=== PATIENT | male | born 1970 | race Caucasian/White ===

== ENCOUNTER → 2024-08-08 | Outpatient (CLI) | payer SELFPAY ==
[2024-08-08 11:21] LABS: HCT 35.6 % (39.0-53.0); HGB 11.1 gm/dL (13.0-17.5); Hypochromasia Slight; MCH 30.4 pg (25.0-35.0); MCHC 31.1 g/dL (31.0-37.0); MCV 97.7 fL (80.0-100.0); Macrocytosis Slight; Mean Platelet Volume 8.1; Platelet Count 76 k/uL (150-450); RBC 3.64 m/uL (4.30-5.90); RDW 15.9 % (11.5-15.5)
[2024-08-08 12:57] LABS: Neutrophils % (M) 7 %; Nucleated Red Blood Cells 1 /100 WBC (0-0); Total Cells Counted 200
[2024-08-08 13:05] LABS: Blast Cells # (M) 150.93 k/uL (0); Eosinophils # (M) 1.68 k/uL (0-0.7); Lymphocytes # (M) 3.35 k/uL (1.0-4.8); Monocytes # (M) 3.35 k/uL (0-1.0); Neutrophils # (M) 11.74 k/uL (1.3-7.7); WBC 167.7 k/uL (3.8-10.6)
[2024-08-08 13:06] LABS: Anisocytosis (M) Present
== END | disposition home or self-care (01) ==
LOC: LABWHC1 10:42
PROVIDERS: ATTEND Family Medicine
DX: R89.9 Unspecified abnormal finding in specimens from other organs, systems and tissues (principal); R79.89 Other specified abnormal findings of blood chemistry
CPT/HCPCS: 36415; 82607; 82746; 85025

== ENCOUNTER → 2024-08-08 | Outpatient (CLI) | payer SELFPAY ==
--- NOTE | 2024-08-08 12:32 | US ---
EXAMINATION TYPE: US abdomen complete DATE OF EXAM: 08/08/2024 COMPARISON: NONE CLINICAL INDICATION: Male, 53 years old with history of R10.12 LEFT UPPER QUADRANT PAIN; LUQ pain, po ssible lymphoma. pt. refereed to oncology TECHNIQUE: Grayscale and color Doppler imaging of the abdomen was performed. FINDINGS: EXAM MEASUREMENTS: Liver Length: 19.1 cm Gallbladder Wall: 0.2 cm CBD: 0.3 cm, color Doppler imaging was utilized to isolate the common bile duct for measurement. Spleen: 19x11.9x15.2 cm Right Kidney: 14.7x5.6x5.3 cm Left Kidney: 13.1x3.7x5.2 cm Pancreas: hypoechoic area 4.0x1.0x1.9cm Liver: enlarged, echogenic Gallbladder: large stone 2.1x1.6x1.4cm Evidence for sonographic Decker's sign: No CBD: wnl Spleen: massively enlarged, possible splenules vs. hypoechoic areas of malignant origin. Right Kidney: large cystic area superior pole: 7.2 x 7.6 x 7.1cm Left Kidney: wnl Upper IVC: wnl Abd Aorta: plaque distal aorta exam limited by bowel gas The intrahepatic portion of the IVC and proximal abdominal aorta are within normal limits. Common bi le duct is unremarkable. The visualized portions of the pancreas are homogenous. Kidneys are symmet von and free of hydronephrosis. IMPRESSION: 1. Hepatosplenomegaly. 2. Cholelithiasis. 3. Hypoechoic area which is indeterminate in the pancreatic head. Further evaluation with pancreatic mass protocol MRI recommended. 4. Right simple appearing renal cysts. [facility], , 08/08/2024 12:30 PM
== END | disposition home or self-care (01) ==
LOC: RADUSWWP 09:53
PROVIDERS: ATTEND Family Medicine
DX: K80.20 Calculus of gallbladder without cholecystitis without obstruction (principal); N28.1 Cyst of kidney, acquired; R16.2 Hepatomegaly with splenomegaly, not elsewhere classified; R63.4 Abnormal weight loss; R11.0 Nausea; R68.83 Chills (without fever)
CPT/HCPCS: 76700

== ENCOUNTER 2024-08-09 05:25 | Inpatient (IN) | payer OTHER ==
[2024-08-09] MEDS ORDERED: ONDANSETRON 4 MG/2 ML VIAL IVP PRN (06:00)
[2024-08-09] MEDS ORDERED: NALOXONE 0.4 MG/ML 1 ML VIAL IV PRN (06:00)
[2024-08-09] MEDS ORDERED: ACETAMINOPHEN TAB 325 MG TAB PO PRN (06:00)
[2024-08-09] MEDS ORDERED: KETOROLAC 15 MG/ML 1 ML VIAL IVP PRN (06:00)
--- NOTE | 2024-08-09 06:09 | ED ---
General Adult HPI - General Chief complaint: Abdominal Pain Stated complaint: abd pain,Leukemia Time Seen by Provider: 08/09/24 05:30 Source: patient, RN notes reviewed, old records reviewed Mode of arrival: ambulatory Limitations: no limitations - History of Present Illness Initial comments: 53-year-old male with abdominal pain, recent diagnosis of leukemia. Patient was seen by oncology yesterday. Patient had significantly elevated white blood cell count and 90% blasts. He had an ultrasound of the abdomen performed which showed hepatosplenomegaly. Patient was started on hydroxyurea he was instructed to return to the emergency department with increased abdominal pain. He is pending bone marrow biopsy according to the patient. No fever. No vomiting. - Related Data Allergies Allergy/AdvReac Type Severity Reaction Status Date / Time No Known Allergies Allergy Verified 08/09/24 05:37 Review of Systems ROS Statement: Those systems with pertinent positive or pertinent negative responses have been documented in the HPI. ROS Other: All systems not noted in ROS Statement are negative. Past Medical History Past Medical History: Cancer History of Any Multi-Drug Resistant Organisms: None Reported Past Surgical History: No Surgical Hx Reported Past Psychological History: No Psychological Hx Reported Smoking Status: Current every day smoker Past Alcohol Use History: None Reported Past Drug Use History: Marijuana General Exam Limitations: no limitations General appearance: alert, in no apparent distress Head exam: Present: atraumatic, normocephalic Eye exam: Present: normal appearance, PERRL ENT exam: Present: normal exam Respiratory exam: Present: normal lung sounds bilaterally. Absent: respiratory distress, wheezes Cardiovascular Exam: Present: regular rate, normal rhythm GI/Abdominal exam: Present: soft, distended, tenderness Extremities exam: Present: normal inspection, normal capillary refill Neurological exam: Present: alert, oriented X3, CN II-XII intact. Absent: motor sensory deficit Psychiatric exam: Present: normal affect, normal mood Skin exam: Present: warm, dry, intact. Absent: cyanosis, diaphoretic Course Vital Signs 08/09/24 05:31 Temperature 97.5 F L Pulse Rate 91 Respiratory 18 Rate Blood Pressure 119/77 O2 Sat by Pulse 98 Oximetry Medical Decision Making - Medical Decision Making Was pt. sent in by a medical professional or institution (, PA, ADOPTION COUNSELOR, urgent care, hospital, or detention...) When possible be specific @Sent in by oncology Did you speak to anyone other than the patient for history (EMS, parent, family, police, friend...)? What history was obtained from this source @ -No Did you review nursing and triage notes (agree or disagree)? Why? @ -I reviewed and agree with nursing and triage notes Were old charts reviewed (outside hosp., previous admission, EMS record, old EKG, old radiological studies, urgent care reports/EKG's, detention records)? Report findings @ -No old charts were reviewed Differential Abdominal Pain Men: Appendicitis, cholecystitis, diverticulosis, ischemic bowel, pancreatitis, hepatitis, UTI, gastroenteritis, AAA, incarcerated hernia, bowel obstruction, constipation, inflammatory bowel, hepatitis, peptic ulcer disease, splenic infarction, perforated viscus, testicular torsion, this is not meant to be an all-inclusive list EKG interpreted by me (3pts min.). @ -As above X-rays interpreted by me (1pt min.). @ -None done CT interpreted by me (1pt min.). @ -None done U/S interpreted by me (1pt. min.). @ -None done What testing was considered but not performed or refused? (CT, X-rays, U/S, labs)? Why? @ -None What meds were considered but not given or refused? Why? @ -None Did you discuss the management of the patient with other professionals (professionals i.e. , PA, ADOPTION COUNSELOR, lab, RT, psych nurse, nephrology social worker, potter or ceramic artist, teacher, licensed loan officer, disease case manager)? Give summary @ -Case discussed with Dr. Birch who will admit Was smoking cessation discussed for >3mins.? @ -No Was critical care preformed (if so, how long)? @ -No Were there social determinants of health that impacted care today? How? (Homelessness, low income, unemployed, alcoholism, drug addiction, transport ation, low edu. Level, literacy, decrease access to med. care, residential, rehab)? @ -No Was there de-escalation of care discussed even if they declined (Discuss DNR or withdrawal of care, Hospice)? DNR status @ -No What co-morbidities impacted this encounter? (DM, HTN, Smoking, COPD, CAD, Cancer, CVA, ARF, Chemo, Hep., AIDS, mental health diagnosis, sleep apnea, morbid obesity)? @ -New diagnosis of leukemia Was patient admitted / discharged? Hospital course, mention meds given and route, prescriptions, significant lab abnormalities, going to OR and other pertinent info. @Repeat laboratory studies will be obtained these results are pending. Patient request Toradol for pain. He is given IV fluid in the emergency department will be admitted with consult to oncology, Dr. Birch aware. Undiagnosed new problem with uncertain prognosis? @ -No Drug Therapy requiring intensive monitoring for toxicity (Heparin, Nitro, Insulin, Cardizem)? @ -No Were any procedures done? @ -No Diagnosis/symptom? @ -Acute leukemia, abdominal pain Acute, or Chronic, or Acute on Chronic? @ -Acute Uncomplicated (without systemic symptoms) or Complicated (systemic symptoms)? @ -Default Side effects of treatment? @ -No Exacerbation, Progression, or Severe Exacerbation? @ -No Poses a threat to life or bodily function? How? (Chest pain, USA, SC, pneumonia, PE, COPD, DKA, ARF, appy, cholecystitis, CVA, Diverticulitis, Homicidal, Suicidal, threat to staff... and all critical care pts) @ -Yes, blast crisis, leukostasis Disposition Clinical Impression: Abdominal pain, Hepatosplenomegaly, Acute leukemia Disposition: ADMITTED IP TO THIS HOSP Condition: Stable Is patient prescribed a controlled substance at d/c from ED?: No Referrals: Eliot Birch Jr, DO [Primary Care Provider] - 1-2 days Time of Disposition: 06:09
[2024-08-09 06:11] LABS: Anisocytosis Slight; HCT 35.4 % (39.0-53.0); HGB 11.7 gm/dL (13.0-17.5); MCH 31.8 pg (25.0-35.0); MCHC 33.1 g/dL (31.0-37.0); MCV 96.1 fL (80.0-100.0); Macrocytosis Slight; Mean Platelet Volume 8.6; Poikilocytosis Slight; RBC 3.68 m/uL (4.30-5.90); RDW 16.4 % (11.5-15.5)
[2024-08-09] MEDS: SODIUM CHLORIDE 0.9% 1,000 ML IV STA (06:15)
[2024-08-09] MEDS: SODIUM CHLORIDE 0.9% 500 ML 500 ML IV STA (06:17)
[2024-08-09] MEDS: KETOROLAC 15 MG/ML 1 ML VIAL IVP STA (06:18)
[2024-08-09 06:20] LABS: ALT 25 U/L (4-49); AST 88 U/L (17-59); African American GFR (CKD) >90 (>60 ml/min/1.73 sqM); Albumin 3.7 g/dL (3.5-5.0); Alkaline Phosphatase 194 U/L (38-126); Amylase 53 U/L (30-110); Anion Gap 14 mmol/L; Blood Urea Nitrogen 16 mg/dL (9-20); Calcium 8.9 mg/dL (8.4-10.2); Carbon Dioxide 24 mmol/L (22-30); Chloride 99 mmol/L (98-107); Glucose 81 mg/dL (74-99); Lipase 128 U/L (23-300); Magnesium 1.8 mg/dL (1.6-2.3); Non-African American GFR(CKD) >90 (>60 ml/min/1.73 sqM); Phosphorus 3.2 mg/dL (2.5-4.5); Sodium 137 mmol/L (137-145); Total Bilirubin 0.8 mg/dL (0.2-1.3); Total Protein 6.3 g/dL (6.3-8.2); Uric Acid 9.2 mg/dL (3.5-8.5)
[2024-08-09 06:46] LABS: WBC 167.7 k/uL (3.8-10.6)
[2024-08-09 06:47] LABS: Platelet Count 74 k/uL (150-450)
[2024-08-09 07:03] LABS: Partial Thromboplastin Time 24.7 sec (22.0-30.0); Prothrombin Time 11.1 sec (10.0-12.5)
[2024-08-09 07:12] LABS: Appearance,Urine Cloudy (Clear); Bacteria,Urine Rare /hpf; Bilirubin,Urine Negative (Negative); Blood,Urine Small (Negative); Budding Yeast,Urine Many /hpf; Color,Urine Yellow; Glucose,Urine (UA) Negative (Negative); Granular Casts,Urine 6 /lpf (0); Hyaline Casts,Urine 11 /lpf (0-2); Ketones,Urine Trace (Negative); Leukocyte Esterase,Urine Negative (Negative); Mucus,Urine Few /hpf; Nitrite,Urine Negative (Negative); PH, Urine 5.5 (5.0-8.0); Protein,Urine 1+ (Negative); RBC,Urine 1 /hpf (0-5); WBC,Urine 3 /hpf (0-5)
[2024-08-09 08:47] LABS: Lymphocytes # (M) 16.77 k/uL (1.0-4.8); Metamyelocytes # (M) 3.35 k/uL (0); Metamyelocytes % 2 %; Monocytes # (M) 6.71 k/uL (0-1.0); Myelocytes # (M) 3.35 k/uL (0); Myelocytes % 2 %; Neutrophils # (M) 16.77 k/uL (1.3-7.7); Neutrophils % (M) 10 %; Promyelocytes # (M) 1.68 k/uL (0); Promyelocytes % 1 %
[2024-08-09 08:49] LABS: Blast Cells # (M) 122.42 k/uL (0); Nucleated Red Blood Cells 0 /100 WBC (0-0); Total Cells Counted 200
[2024-08-09] MEDS: PANTOPRAZOLE 40 MG/10 ML VIAL IV SCH (09:25)
[2024-08-09] MEDS: allopurinoL 300 MG TAB PO SCH (09:30)
[2024-08-09 10:23] LABS: Reticulocyte % 2.5 % (0.5-2.0)
[2024-08-09] MEDS ORDERED: LIDOCAINE 1% INJ 10MG/ML (20 ML MDV) ONE (12:50)
[2024-08-09] MEDS ORDERED: PROPOFOL 10 MG/ML 20 ML VIAL IV ONE (12:50)
[2024-08-09] MEDS: IV FLUID CONTINUATION 1,000 ML IV ONE (12:55)
--- NOTE | 2024-08-09 13:13 | P.PN ---
Progress Note - Text Progress Note Date: 08/09/24 Patient not seen, off floor for procedure.
[2024-08-09] MEDS: SODIUM CHLORIDE 0.9% 500 ML 500 ML IV ONE (13:26)
--- NOTE | 2024-08-09 16:05 | P.HPIM ---
History of Present Illness H&P Date: 08/09/24 Chief Complaint: Abdominal pain, recently diagnosed with leukemia History and Physical and Discharge Summary: This a pleasant 53-year-old gentleman elevated by oncology yesterday, lab work performed reporting significantly elevated WBCs, 90% blasts in a patient recently diagnosed with leukemia and instructed to proceed to the ER for bone marrow BX. Abdominal ultrasound reported hypoechoic area indeterminate of the pancreatic head-4.0 x 1.0 x 1.9 cm , liver enlarged, echogenic ,gallbladder- large stone 2.1 x 1.6 x 1.4 cm, common bile duct within normal limits, spleen massively enlarged possible splenules versus hypoechoic areas of malignant origin, kidneys symmetric and free of hydronephrosis. Currently maintained on Prilosec, Hydrea, Zyloprim. Reports he had mild nausea prior to the biopsy which has subsided. Denies fevers or chills. Denies chest pain, palpitations. Patient is status post bone marrow biopsy, pressure dressing clean dry and intact. Denies nausea vomiting or diarrhea. Denies lightheadedness, dizziness or focal deficits. Review of Systems ROS Statement: Those systems with pertinent positive or pertinent negative responses have been documented in the HPI. ROS Other: All systems not noted in ROS Statement are negative. Past Medical History Past Medical History: Cancer History of Any Multi-Drug Resistant Organisms: None Reported Past Surgical History: No Surgical Hx Reported Past Psychological History: No Psychological Hx Reported Smoking Status: Current every day smoker Past Alcohol Use History: None Reported Past Drug Use History: Marijuana Medications and Allergies Home Medications Medication Instructions Recorded Confirmed Type Hydroxyurea [Hydrea] 1,000 mg PO TID 08/09/24 08/09/24 History Omeprazole [PriLOSEC] 20 mg PO DAILY 08/09/24 08/09/24 History allopurinoL [Zyloprim] 300 mg PO HS 08/09/24 08/09/24 History Allergies Allergy/AdvReac Type Severity Reaction Status Date / Time No Known Allergies Allergy Verified 08/09/24 10:07 Physical Exam Vitals: Vital Signs Temp Pulse Resp BP Pulse Ox 08/09/24 14:34 84 16 93/64 97 08/09/24 13:35 81 16 101/66 96 08/09/24 11:43 95 18 113/73 97 08/09/24 10:11 85 17 97 08/09/24 09:30 97.7 F 89 19 105/76 97 08/09/24 06:39 97.7 F 86 18 115/70 94 L 08/09/24 05:31 97.5 F L 91 18 119/77 98 Intake and Output 08/08/24 08/09/24 08/09/24 22:59 06:59 14:59 Intake Total 100 Balance 100 Intake: IV 100 Other: Weight 61.235 kg PHYSICAL EXAM: VITAL SIGNS: [] Reviewed GENERAL: Thin, alert and oriented x 3, sitting up in bed, no acute distress HEENT: Normocephalic, atraumatic conjunctivae normal. NECK: No JVD. No thyroid enlargement. No LNs CARDIOVASCULAR: S1, S2 regular.. No murmur RESPIRATION: Unlabored, equal air entry, clear to auscultation.No rhonchi or crackles. No bronchial breathing. ABDOMEN: Soft, distended, minimal tenderness, hepatosplenomegaly, bowel sounds heard. LEGS: No edema. no swelling NERVOUS SYSTEM: Cranial N 2-12 grossly normal. No focal deficits. Strength and sensation grossly intact. Skin: Warm and dry, no rash. Pressure dressing clean dry and intact. Results CBC & Chem 7: 08/09/24 05:49 08/09/24 05:49 Labs: Abnormal Lab Results - Last 24 Hours (Table) 08/09/24 08/09/24 08/09/24 Range/Units 05:49 05:49 06:39 WBC 167.7 H* (3.8-10.6) k/uL RBC 3.68 L (4.30-5.90) m/uL Hgb 11.7 L (13.0-17.5) gm/dL Hct 35.4 L (39.0-53.0) % RDW 16.4 H (11.5-15.5) % Plt Count 74 L (150-450) k/uL Blast Cells % 73 H* % Neutrophils # (Manual) 16.77 H (1.3-7.7) k/uL Lymphocytes # (Manual) 16.77 H (1.0-4.8) k/uL Monocytes # (Manual) 6.71 H (0-1.0) k/uL Metamyelocytes # (Man) 3.35 H (0) k/uL Myelocytes # (Manual) 3.35 H (0) k/uL Promyelocytes # (Man) 1.68 H (0) k/uL Blast Cells # (Man) 122.42 H (0) k/uL Retic Count 2.5 H (0.5-2.0) % Uric Acid 9.2 H (3.5-8.5) mg/dL AST 88 H (17-59) U/L Alkaline Phosphatase 194 H (38-126) U/L Urine Protein 1+ H (Negative) Urine Ketones Trace H (Negative) Urine Blood Small H (Negative) Urine Bacteria Rare H (None) /hpf Hyaline Casts 11 H (0-2) /lpf Urine Mucus Few H (None) /hpf Urine Yeast (Budding) Many H (None) /hpf Assessment and Plan Assessment: Abdominal pain, hepatosplenomegaly, acute blast crisis, 90% on admission, decreased to 73, in a patient recently diagnosed with acute leukemia, status post bone marrow biopsy Hypoechoic area 4.0 x 1.0 x 1.9 cm indeterminate in the pancreatic head, further biopsy to be arranged as per Dr. Birch outpatient. Cholelithiasis, large stone 2.1 x 1.6 x 1.4 cm, CBD WNL Leukocytosis, significant with blasts and hepatosplenomegaly Right kidney large cystic area superior pole 7.2 x 7.6 x 7.1 cm, reported as right simple appearing renal cysts Moderate protein calorie malnutrition, BMI 18.8 Ongoing nicotine dependence, marijuana use, cessation reinforced. Plan: Continue on current medication regimen ,monitoring and symptomatic treatment. Patient has returned from bone marrow biopsy, receiving IV fluid hy dration. Patient and significant other are eager for discharge, patient will be discharged, pending final DC recommendations, clearance and follow-up per oncology. Ultrasound reviewed with PCP, pancreatic biopsy will be arranged outpatient in clinic with PCP, Dr. Birch. Prognosis guarded given multiple complex medical issues. The impression and plan of care has been dictated as directed. : I performed a history and examination of this patient, discussed the same with the dictator. I agree with the dictator's note ,documented as a scribe. Any additional findings or plans will be noted.
[2024-08-09 16:06] VITALS: PULSE 90; RESP 17
--- NOTE | 2024-08-09 16:17 | P.CONS ---
History of Present Illness - Reason for Consult Consult date: 08/09/24 Leukocytosis, peripheral blasts Requesting physician: Lauri Simons - Chief Complaint abd pain - History of Present Illness Mr. Lovelace is a very pleasant 53-year-old male seen yesterday for the first time in the office at the urgent request of his PCP Dr. Birch. Patient reports he had not been feeling well for about 2 months prior, some of his complaints included bone and joint pains that were new, left upper quadrant pain radiating to the shoulder, new onset acid reflux. About 3 weeks ago patient's significant other reports pt started having "drenching sweats," and would wake up in completely soaked clothers. Energy level started to decline pretty signific antly. Patient has had a 15 pound weight loss in about 1 month. Significant other convinced him to go to see his PCP care at which time laboratory workup was done. White blood cells were 179,000 platelets 88,000, hemoglobin 11.2 inflammatory markers such as CRP was elevated at 22.9, sed rate 39. Creatinine mildly elevated at 1.2, ALK phos 163. We saw patient yesterday in the office for urgent consult. Patient reporting constitutional symptoms as above. He is able to eat and drink, denies any nausea or vomiting, does have some early satiety and has to sleep in a recliner because of reflux. No shortness of breath, cough, acute changes in bowel or bladder habits. He does not have any s welling in legs. Pain in bones is not out of control. Patient was sent home from [facility] on Hydrea and allopurinol with plans for BM Bx today. Uric acid did return last evening at 10.3. He also had an ultrasound of the abdomen reporting hepatosplenomegaly, spleen 19 x 11.9 x 15.2. Liver length was 19.1 cm. Pt began experiencing some increase in pain and some stomach complaints that made him a little nervous so, he came to ER. In the ER patient appears to be doing ok, he felt much better after single dose of pain medication. The bone marrow biopsy and aspirate is scheduled for later on this morning. Review of Systems 14 point review of systems is negative except as stated in HPI Past Medical History Past Medical History: Cancer History of Any Multi-Drug Resistant Organisms: None Reported Past Surgical History: No Surgical Hx Reported Past Psychological History: No Psychological Hx Reported Smoking Status: Current every day smoker Past Alcohol Use History: None Reported Past Drug Use History: Marijuana Medications and Allergies Home Medications Medication Instructions Recorded Confirmed Type Hydroxyurea [Hydrea] 1,000 mg PO TID 08/09/24 08/09/24 History Omeprazole [PriLOSEC] 20 mg PO DAILY 08/09/24 08/09/24 History allopurinoL [Zyloprim] 300 mg PO HS 08/09/24 08/09/24 History Allergies Allergy/AdvReac Type Severity Reaction Status Date / Time No Known Allergies Allergy Verified 08/09/24 10:07 Physical Exam Vitals: Vital Signs Temp Pulse Resp BP Pulse Ox 08/09/24 11:43 95 18 113/73 97 08/09/24 10:11 85 17 97 08/09/24 09:30 97.7 F 89 19 105/76 97 08/09/24 06:39 97.7 F 86 18 115/70 94 L 08/09/24 05:31 97.5 F L 91 18 119/77 98 Intake and Output 08/08/24 08/09/24 08/09/24 22:59 06:59 14:59 Other: Weight 61.235 kg - Constitutional General appearance: cooperative, no acute distress, thin - EENT Eyes: anicteric sclerae, EOMI ENT: hearing grossly normal, normal oropharynx - Neck Neck: no lymphadenopathy - Respiratory Respiratory: bilateral: CTA - Cardiovascular Rhythm: regular Heart sounds: normal: S1, S2 Abnormal Heart Sounds: no systolic murmur, no diastolic murmur, no rub, no S3 Gallop, no S4 Gallop, no click, no other leg Peripheral Edema: bilateral: None - Gastrointestinal General gastrointestinal: no absent bowel sounds, no decreased bowel sounds, no distended, hepatomegaly, no hyperactive bowel sounds, normal bowel sounds, organomegaly, no rigid, no scaphoid, soft, splenomegaly, no tenderness, no umbilical hernia, no ventral hernia - Integumentary Integumentary: normal - Neurologic Neurologic: CNII-XII intact - Musculoskeletal Musculoskeletal: strength equal bilaterally - Psychiatric Psychiatric: A&O x's 3, appropriate affect, intact judgment & insight Results CBC & Chem 7: 08/09/24 05:49 08/09/24 05:49 Labs: Abnormal Lab Results - Last 24 Hours (Table) 08/09/24 08/09/24 08/09/24 Range/Units 05:49 05:49 06:39 WBC 167.7 H* (3.8-10.6) k/uL RBC 3.68 L (4.30-5.90) m/uL Hgb 11.7 L (13.0-17.5) gm/dL Hct 35.4 L (39.0-53.0) % RDW 16.4 H (11.5-15.5) % Plt Count 74 L (150-450) k/uL Blast Cells % 73 H* % Neutrophils # (Manual) 16.77 H (1.3-7.7) k/uL Lymphocytes # (Manual) 16.77 H (1.0-4.8) k/uL Monocytes # (Manual) 6.71 H (0-1.0) k/uL Metamyelocytes # (Man) 3.35 H (0) k/uL Myelocytes # (Manual) 3.35 H (0) k/uL Promyelocytes # (Man) 1.68 H (0) k/uL Blast Cells # (Man) 122.42 H (0) k/uL Retic Count 2.5 H (0.5-2.0) % Uric Acid 9.2 H (3.5-8.5) mg/dL AST 88 H (17-59) U/L Alkaline Phosphatase 194 H (38-126) U/L Urine Protein 1+ H (Negative) Urine Ketones Trace H (Negative) Urine Blood Small H (Negative) Urine Bacteria Rare H (None) /hpf Hyaline Casts 11 H (0-2) /lpf Urine Mucus Few H (None) /hpf Urine Yeast (Budding) Many H (None) /hpf Assessment and Plan (1) Leukocytosis Current Visit: Yes Status: Acute Priority: High Code(s): D72.829 - ELEVATED WHITE BLOOD CELL COUNT, UNSPECIFIED SNOMED Code(s): 527819917 (2) Hepatosplenomegaly Current Visit: Yes Status: Acute Priority: High Code(s): R16.2 - HEPATOMEGALY WITH SPLENOMEGALY, NOT ELSEWHERE CLASSIFIED SNOMED Code(s): 96675290 Plan: Significant leukocytosis with peripheral blasts, hepatosplenomegaly -Patient reporting mild constitutional symptoms for about 2 months, with significant progression of fatigue and new onset night sweats and weight loss over the last couple of weeks. Dr. Birch saw pt and keila labs on 08/07 with significant leukocytosis at 179. Dr. Birch made Stat referral to Hematology/Oncology. Patient was seen in our office afternoon of 08/08, PCP had differential ordered and done prior to being seen in the office with peripheral blasts noted. -Based on the findings on laboratory workup, concerns for an acute leukemic pr ocess. Hepatosplenomegaly raises concern that the leukocytosis is a transforming myelofibrosis-hematopoiesis is shifted to the spleen and now there is transformation in the marrow and/or spleen intoacute leukemia-which would certainly be the worst of the 2 scenarios. These potentials have been discussed with the patient and his significant other. -Bone marrow biopsy and aspirate recommended. Patient and significant other agree. Procedure was discussed with them. He is agreeable to proceed with the same -Did speak with [facility] pathology department who received patient specimen yesterday. Pending flow cytometry on the peripheral blood draw. Additional studies, cytogenetics will be done on the peripheral blood. bone marrow was a dry tap-felt that marrow is packed with blasts. -Pending preliminary report for treatment discussion Pt is ok for DC from a HemOnc standpoint. VSS, no SOB, abd pain, he is tolerating oral intake, no acute changes in bowel or bladder, no bleeding. Pt wants to be at home -Continue Hydrea TID and allopurinol QD, pt has Rx at home. -Lab encounter at [facility] on Mon at 1130 to recheck CBC, CMP, uric acid and phos. -Ok to remove pressure dressing after 24 hours.Tylenol only for pain, Shower after removal or pressure dressing. Report any unusual bleeding or bruising or unusual pain in the area. Return to ER if persistent or progressive symptoms Doctor attests: I performed a history and physical examination of this patient, developed impression and plan of care. Discussed with dictator. I agree with dictators note, documented as a scribe. Time with Patient: Greater than 30
[2024-08-09 16:49] VITALS: BP 126/83; TEMP 98
--- NOTE | 2024-08-09 23:47 | OP ---
OPERATIVE REPORT DATE OF SERVICE : PROCEDURE PERFORMED: Bone marrow biopsy with general and local sedation. DESCRIPTION OF PROCEDURE: After being placed in the left lateral decubitus position, the right posterior iliac spine was palpated, followed by palpation of the right posterior iliac crest. Three swabs of Betadine and three swabs of alcohol were applied to the skin, followed by application of sterile drape. Approximately 9 mL of lidocaine was applied to the periosteum. A 0.3 cm incision was then made into the skin, followed by advanced of a 4- inch Jamshidi needle, following multiple attempts, no aspirate was obtained. Two core samples measuring 0.3 to 0.4 cm were obtained. Additional 0.3 cm incision was made just inferiorly to the first incision, followed by advancement of a 4-inch Jamshidi needle. Again, no aspirate was obtained. Additional 0.4 cm core sample was obtained. He had less than 1 mL of blood loss. He tolerated the procedure without any significant complications. He returned to the ED in stable condition. Samples will be sent for morphology. We will obtain flow cytometry, FISH, cytogenetics, and NGS from the peripheral blood. PREOPERATIVE DIAGNOSIS: Acute myeloid leukemia. POSTOPERATIVE DIAGNOSIS: Acute myeloid leukemia. MMODL / IJN: [id number] / MTDD
== END 2024-08-09 17:00 | disposition home or self-care (01) | DRG 835 ==
LOC: EC 05:25 → 5NMEDONC 06:03
PROVIDERS: ADMIT Family Medicine; ATTEND Family Medicine
PROC: 07DR3ZX Extraction of Iliac Bone Marrow, Percutaneous Approach, Diagnostic (ICD-10-PCS; principal; 2024-08-09 08:00)
DX: C92.00 Acute myeloblastic leukemia, not having achieved remission (principal); E44.0 Moderate protein-calorie malnutrition; Z68.1 Body mass index [BMI] 19.9 or less, adult; R16.2 Hepatomegaly with splenomegaly, not elsewhere classified; K21.9 Gastro-esophageal reflux disease without esophagitis; K80.20 Calculus of gallbladder without cholecystitis without obstruction; N28.1 Cyst of kidney, acquired; F17.200 Nicotine dependence, unspecified, uncomplicated; Z71.6 Tobacco abuse counseling; Z71.51 Drug abuse counseling and surveillance of drug abuser
CPT/HCPCS: 36415; 38222; 80053; 81001; 82150; 83690; 83735; 84100; 84550; 85025; 85045; 85610; 85730; 96361; 96374; 96375; 99285

== ENCOUNTER 2024-08-24 10:49 | Inpatient (IN) | payer OTHER ==
--- NOTE | 2024-08-24 11:16 | ED ---
Weakness HPI - General Chief complaint: Shortness of Breath Stated complaint: Weakness Time Seen by Provider: 08/24/24 11:02 Source: patient, family, RN notes reviewed, old records reviewed, Caregiver Mode of arrival: wheelchair Limitations: physical limitation - History of Present Illness Initial comments: This is a 53-year-old male brought in for abnormal outpatient lab test as well as significant weakness brought in by who states patient has deteriorating rapidly with new diagnosis of CA MD Complaint: generalized weakness, lack of energy -: days(s) Location: generalized Severity: severe Severity scale (1-10): 10 Consistency: constant Improves with: none Worsens with: none Associated Symptoms: confusion, loss of appetite, nausea/vomiting, shortness of breath - Related Data Home Medications Medication Instructions Recorded Confirmed Hydroxyurea [Hydrea] 1,000 mg PO TID 08/09/24 08/24/24 Omeprazole [PriLOSEC] 20 mg PO DAILY 08/09/24 08/24/24 allopurinoL [Zyloprim] 300 mg PO HS 08/09/24 08/24/24 HYDROcodone/APAP 10-325MG [[place] 1 - 2 tab PO Q6H PRN 08/24/24 08/24/24 10-325] Ondansetron [Zofran] 4 mg PO Q6H PRN 08/24/24 08/24/24 Allergies Allergy/AdvReac Type Severity Reaction Status Date / Time No Known Allergies Allergy Verified 08/24/24 11:17 Review of Systems ROS Statement: Those systems with pertinent positive or pertinent negative responses have been documented in the HPI. ROS Other: All systems not noted in ROS Statement are negative. Past Medical History Past Medical History: Cancer History of Any Multi-Drug Resistant Organisms: None Reported Past Surgical History: No Surgical Hx Reported Past Psychological History: No Psychological Hx Reported Smoking Status: Current every day smoker Past Alcohol Use History: None Reported Past Drug Use History: Marijuana - Past Family History Father History Unknown: Yes Mother Family Medical History: Cancer Additional Family Medical History / Comment(s): Breast CA, passed at age 53 General Exam Limitations: altered mental status, physical limitation General appearance: alert, anxious, lethargic, in distress Head exam: Present: atraumatic, normocephalic, normal inspection Eye exam: Present: normal appearance, PERRL, EOMI. Absent: scleral icterus, conjunctival injection, periorbital swelling ENT exam: Present: normal exam, mucous membranes moist Neck exam: Present: normal inspection. Absent: tenderness, meningismus, lymp hadenopathy Respiratory exam: Present: respiratory distress, wheezes, accessory muscle use, decreased breath sounds, prolonged expiratory. Absent: rales, rhonchi, stridor Cardiovascular Exam: Present: tachycardia, normal heart sounds. Absent: systo lic murmur, diastolic murmur, rubs, gallop, clicks GI/Abdominal exam: Present: soft, normal bowel sounds. Absent: distended, tenderness, guarding, rebound, rigid Extremities exam: Present: normal inspection, full ROM, normal capillary refill. Absent: tenderness, pedal edema, joint swelling, calf tenderness Back exam: Present: normal inspection Neurological exam: Present: alert, oriented X3, CN II-XII intact Psychiatric exam: Present: normal affect, normal mood Skin exam: Present: warm, dry, intact, normal color. Absent: rash Course Vital Signs 08/24/24 08/24/24 08/24/24 10:54 11:19 11:20 Temperature 97.9 F Pulse Rate 125 H 118 H 115 H Pulse Rate [ Boy'S Adviser ] Respiratory 22 18 18 Rate Blood Pressure 103/69 109/72 104/70 O2 Sat by Pulse 99 98 96 Oximetry 08/24/24 08/24/24 08/24/24 11:29 12:30 13:30 Temperature 97.0 F L Pulse Rate 114 H 113 H 62 Pulse Rate [ 118 H Boy'S Adviser ] Respiratory 20 20 20 Rate Blood Pressure 104/69 98/62 100/52 O2 Sat by Pulse 97 97 97 Oximetry 08/24/24 08/24/24 14:29 14:40 Temperature 97.8 F 97.5 F L Pulse Rate 118 H 114 H Pulse Rate [ Boy'S Adviser ] Respiratory 22 16 Rate Blood Pressure 95/65 95/63 O2 Sat by Pulse 97 95 Oximetry - Reevaluation(s) Reevaluation #1: 08/24/24 13:15 Medical records reviewed Reevaluation #2: 08/24/24 13:15 Patient's respirations are improving here in the ER Reevaluation #3: 08/24/24 13:16 Patient informed of results and questions answered Reevaluation #4: Was pt. sent in by a medical professional or institution (JOHN Elkins, ELEVATOR SERVICEMAN, urgent care, hospital, or assisted...) When possible be specific @ -no Did you speak to anyone other than the patient for history (EMS, parent, family, police, friend...)? What history was obtained from this source @ -no Did you review nursing and triage notes (agree or disagree)? Why? @ -agree Are old charts reviewed (outside hosp., previous admission, EMS record, old EKG, old radiological studies, urgent care reports/EKG's, assisted records)? Report findings @ -yes Differential Diagnosis (chest pain, altered mental status, abdominal pain women, abdominal pain men, vaginal bleeding, weakness, fever, dyspnea, syncope, heada margret, dizziness, GI bleed, back pain, seizure, CVA, palpatations, mental health, musculoskeletal)? @ -prior EKG interpreted by me (3pts min.). @ -yes X-rays interpreted by me (1pt min.). @ -yes significant pneumonia CT interpreted by me (1pt min.). @ -no U/S interpreted by me (1pt. min.). @ -no What testing was considered but not performed or refused? (CT, X-rays, U/S, labs)? Why? @ -none What meds were considered but not given or refused? Why? @ -none Did you discuss the management of the patient with other professionals (professionals i.e. JOHN Elkins, ELEVATOR SERVICEMAN, lab, RT, psych nurse, oncology social worker, shank rander, teacher, articulation officer, pillowcase maker)? Give summary @ -no Was smoking cessation discussed for >3mins.? @ -no Was critical care preformed (if so, how long)? @ -no Were there social determinants of health that impacted care today? How? (Homelessness, low income, unemployed, alcoholism, drug addiction, transportation, low edu. Level, literacy, decrease access to med. care, residential, rehab)? @ -none Was there de-escalation of care discussed even if they declined (Discuss DNR or withdrawal of care, Hospice)? DNR status @ -no What co-morbidities impacted this encounter? (DM, HTN, Smoking, COPD, CAD, Cancer, CVA, ARF, Chemo, Hep., AIDS, mental health diagnosis, sleep apnea, morbid obesity)? @ -none Was patient admitted / discharged? Hospital course, mention meds given and route, prescriptions, significant lab abnormalities, going to OR and other pertinent info. @ - 53 male to ER for evaluation patient here for significant complications of CA, patient will be admitted to ICU for significant acidosis non-ST elevated GA concern for sepsis, concern for complication of cancer and leukemia including tumor lysis and leukostasis, patient appears to have may be pneumonia on chest x-ray Admitted Undiagnosed new problem with uncertain prognosis? @ -no Drug Therapy requiring intensive monitoring for toxicity (Heparin, Nitro, Insulin, Cardizem)? @ -no Were any procedures done? @ -no Diagnosis/symptom? @ -Cancer complications acidosis, non-ST elevated GA with sepsis pneumonia suspect leukostasis Acute, or Chronic, or Acute on Chronic? @ -Acute Uncomplicated (without systemic symptoms) or Complicated (systemic symptoms)? @ -Complicated Side effects of treatment? @ -no Exacerbation, Progression, or Severe Exacerbation? @ -exacerbation Poses a threat to life or bodily function? How? (Chest pain, USA, GA, pneumonia, PE, COPD, DKA, ARF, appy, cholecystitis, CVA, Diverticulitis, Homicidal, Suicidal, threat to staff... and all critical care pts) @ -yes significant cancer history Reevaluation #5: Differential Weakness: Hypoglycemia, shock, sepsis, hyponatremia, anemia, infection, GA, ETOH, adverse medicine reaction, overdose, stroke, this is not meant to be an all-inclusive list. - Consultations Consultation #1: Spoke with oncology as well as ICU who did evaluate patient here in the ER and patient will be admitted to ICU Consultation #2: Spoke with Dr. Birch who is aware of this patient EKG Findings - EKG Comments: EKG Findings:: EKG is sinus tach 117 MD 124 QRS 73 QTc 328 - EKG Results: EKG: interpreted by ERMD Medical Decision Making - Medical Decision Making 53 male to ER for evaluation patient here for significant complications of CA, patient will be admitted to ICU for significant acidosis non-ST elevated GA concern for sepsis, concern for complication of cancer and leukemia including tumor lysis and leukostasis, patient appears to have may be pneumonia on chest x-ray - Lab Data Result diagrams: 08/24/24 19:30 08/24/24 19:30 Lab Results 08/24/24 08/24/24 08/24/24 Range/Units 11:16 11:16 11:16 WBC 135.7 H* (3.8-10.6) k/uL RBC 2.19 L (4.30-5.90) m/uL Hgb 8.1 L D (13.0-17.5) gm/dL Hct 21.8 L (39.0-53.0) % MCV 99.4 (80.0-100.0) fL MCH 37.1 H (25.0-35.0) pg MCHC 37.3 H (31.0-37.0) g/dL RDW 17.1 H (11.5-15.5) % Plt Count 21 L D (150-450) k/uL MPV 11.2 Neutrophils % (Manual) 3 % Band Neuts % (Manual) 1 % Lymphocytes % (Manual) 14 % Monocytes % (Manual) 9 % Metamyelocytes % 1 % Blast Cells % 74 H* % Neutrophils # (Manual) 5.40 (1.3-7.7) k/uL Lymphocytes # (Manual) 19.00 H (1.0-4.8) k/uL Monocytes # (Manual) 12.21 H (0-1.0) k/uL Metamyelocytes # (Man) 1.36 H (0) k/uL Blast Cells # (Man) 100.42 H (0) k/uL Nucleated RBCs 0 (0-0) /100 WBC Manual Slide Review Performed Hypochromasia Marked Poikilocytosis Slight Anisocytosis Slight Macrocytosis Slight PT 12.4 (10.0-12.5) sec INR 1.2 H (<1.2) APTT 21.8 L (22.0-30.0) sec Sample Site ABG pH (7.35-7.45) ABG pCO2 (35-45) mmHg ABG pO2 (83-108) mmHg ABG HCO3 (21-25) mmol/L ABG Total CO2 (19-24) mmol/L ABG O2 Saturation (94-97) % ABG Base Excess mmol/L Vito Test FiO2 % Sodium 138 (137-145) mmol/L Potassium 4.8 (3.5-5.1) mmol/L Chloride 106 (98-107) mmol/L Carbon Dioxide 8 L* (22-30) mmol/L Anion Gap 24 mmol/L BUN 40 H (9-20) mg/dL Creatinine 1.27 H (0.66-1.25) mg/dL Est GFR (CKD-EPI)AfAm 75 (>60 ml/min/1.73 sqM) Est GFR (CKD-EPI)NonAf 65 (>60 ml/min/1.73 sqM) Glucose 91 (74-99) mg/dL Uric Acid (3.5-8.5) mg/dL Calcium 9.3 (8.4-10.2) mg/dL Phosphorus (2.5-4.5) mg/dL Magnesium 2.6 H (1.6-2.3) mg/dL Total Bilirubin 1.4 H (0.2-1.3) mg/dL AST 74 H (17-59) U/L ALT 27 (4-49) U/L Alkaline Phosphatase 261 H (38-126) U/L Troponin I (0.000-0.034) ng/mL NT-Pro-B Natriuret Pep 6810 pg/mL Total Protein 6.0 L (6.3-8.2) g/dL Albumin 3.6 (3.5-5.0) g/dL Procalcitonin (0.02-0.50) ng/mL Blood Type Confirm 08/24/24 08/24/24 08/24/24 Range/Units 11:16 11:16 11:16 WBC (3.8-10.6) k/uL RBC (4.30-5.90) m/uL Hgb (13.0-17.5) gm/dL Hct (39.0-53.0) % MCV (80.0-100.0) fL MCH (25.0-35.0) pg MCHC (31.0-37.0) g/dL RDW (11.5-15.5) % Plt Count (150-450) k/uL MPV Neutrophils % (Manual) % Band Neuts % (Manual) % Lymphocytes % (Manual) % Monocytes % (Manual) % Metamyelocytes % % Blast Cells % % Neutrophils # (Manual) (1.3-7.7) k/uL Lymphocytes # (Manual) (1.0-4.8) k/uL Monocytes # (Manual) (0-1.0) k/uL Metamyelocytes # (Man) (0) k/uL Blast Cells # (Man) (0) k/uL Nucleated RBCs (0-0) /100 WBC Manual Slide Review Hypochromasia Poikilocytosis Anisocytosis Macrocytosis PT (10.0-12.5) sec INR (<1.2) APTT (22.0-30.0) sec Sample Site ABG pH (7.35-7.45) ABG pCO2 (35-45) mmHg ABG pO2 (83-108) mmHg ABG HCO3 (21-25) mmol/L ABG Total CO2 (19-24) mmol/L ABG O2 Saturation (94-97) % ABG Base Excess mmol/L Vito Test FiO2 % Sodium (137-145) mmol/L Potassium (3.5-5.1) mmol/L Chloride (98-107) mmol/L Carbon Dioxide (22-30) mmol/L Anion Gap mmol/L BUN (9-20) mg/dL Creatinine (0.66-1.25) mg/dL Est GFR (CKD-EPI)AfAm (>60 ml/min/1.73 sqM) Est GFR (CKD-EPI)NonAf (>60 ml/min/1.73 sqM) Glucose (74-99) mg/dL Uric Acid (3.5-8.5) mg/dL Calcium (8.4-10.2) mg/dL Phosphorus (2.5-4.5) mg/dL Magnesium (1.6-2.3) mg/dL Total Bilirubin (0.2-1.3) mg/dL AST (17-59) U/L ALT (4-49) U/L Alkaline Phosphatase (38-126) U/L Troponin I 0.157 H* (0.000-0.034) ng/mL NT-Pro-B Natriuret Pep pg/mL Total Protein (6.3-8.2) g/dL Albumin (3.5-5.0) g/dL Procalcitonin 0.33 (0.02-0.50) ng/mL Blood Type Confirm A Positive 08/24/24 08/24/24 Range/Units 12:20 12:32 WBC (3.8-10.6) k/uL RBC (4.30-5.90) m/uL Hgb (13.0-17.5) gm/dL Hct (39.0-53.0) % MCV (80.0-100.0) fL MCH (25.0-35.0) pg MCHC (31.0-37.0) g/dL RDW (11.5-15.5) % Plt Count (150-450) k/uL MPV Neutrophils % (Manual) % Band Neuts % (Manual) % Lymphocytes % (Manual) % Monocytes % (Manual) % Metamyelocytes % % Blast Cells % % Neutrophils # (Manual) (1.3-7.7) k/uL Lymphocytes # (Manual) (1.0-4.8) k/uL Monocytes # (Manual) (0-1.0) k/uL Metamyelocytes # (Man) (0) k/uL Blast Cells # (Man) (0) k/uL Nucleated RBCs (0-0) /100 WBC Manual Slide Review Hypochromasia Poikilocytosis Anisocytosis Macrocytosis PT (10.0-12.5) sec INR (<1.2) APTT (22.0-30.0) sec Sample Site rbrac ABG pH 7.24 L (7.35-7.45) ABG pCO2 28 L (35-45) mmHg ABG pO2 63 L (83-108) mmHg ABG HCO3 12 L (21-25) mmol/L ABG Total CO2 13 L (19-24) mmol/L ABG O2 Saturation 89.0 L (94-97) % ABG Base Excess -14.2 mmol/L Vito Test Yes FiO2 21 % Sodium (137-145) mmol/L Potassium (3.5-5.1) mmol/L Chloride (98-107) mmol/L Carbon Dioxide (22-30) mmol/L Anion Gap mmol/L BUN (9-20) mg/dL Creatinine (0.66-1.25) mg/dL Est GFR (CKD-EPI)AfAm (>60 ml/min/1.73 sqM) Est GFR (CKD-EPI)NonAf (>60 ml/min/1.73 sqM) Glucose (74-99) mg/dL Uric Acid 9.1 H (3.5-8.5) mg/dL Calcium (8.4-10.2) mg/dL Phosphorus 4.2 (2.5-4.5) mg/dL Magnesium (1.6-2.3) mg/dL Total Bilirubin (0.2-1.3) mg/dL AST (17-59) U/L ALT (4-49) U/L Alkaline Phosphatase (38-126) U/L Troponin I (0.000-0.034) ng/mL NT-Pro-B Natriuret Pep pg/mL Total Protein (6.3-8.2) g/dL Albumin (3.5-5.0) g/dL Procalcitonin (0.02-0.50) ng/mL Blood Type Confirm - Radiology Data Radiology results: report reviewed (Chest x-ray is negative for acute disease), image reviewed Critical Care Time Critical Care Time: Yes Total Critical Care Time: 31 Disposition Clinical Impression: Hepatosplenomegaly, Acute leukemia, Leukocytosis, NSTEMI (non-ST elevated myocardial infarction), Acidosis, Pneumonia, Lactic acidosis, Mantle cell lymphoma, Bicytopenia, Abdominal pain, Dyspnea Disposition: ADMITTED IP TO THIS HOSP Condition: Critical Is patient prescribed a controlled substance at d/c from ED?: No Time of Disposition: 13:00
[2024-08-24] MEDS: METOPROLOL TARTRATE 5 MG/5 ML VIAL IVP STA (11:21)
[2024-08-24] MEDS: MORPHINE SULFATE 4 MG/ML SYRINGE IV STA (11:21)
[2024-08-24] MEDS: SODIUM CHLORIDE 0.9% 1,000 ML IV STA ×2 (11:21→12:02)
[2024-08-24] MEDS: ONDANSETRON 4 MG/2 ML VIAL IVP STA (11:22)
[2024-08-24 11:27] LABS: Anisocytosis Slight; HCT 21.8 % (39.0-53.0); Hypochromasia Marked; MCH 37.1 pg (25.0-35.0); MCHC 37.3 g/dL (31.0-37.0); MCV 99.4 fL (80.0-100.0); Macrocytosis Slight; Mean Platelet Volume 11.2; Poikilocytosis Slight; RBC 2.19 m/uL (4.30-5.90); RDW 17.1 % (11.5-15.5)
[2024-08-24 11:35] LABS: AST 74 U/L (17-59); African American GFR (CKD) 75 (>60 ml/min/1.73 sqM); Albumin 3.6 g/dL (3.5-5.0); Alkaline Phosphatase 261 U/L (38-126); Anion Gap 24 mmol/L; Blood Urea Nitrogen 40 mg/dL (9-20); Calcium 9.3 mg/dL (8.4-10.2); Chloride 106 mmol/L (98-107); Glucose 91 mg/dL (74-99); Magnesium 2.6 mg/dL (1.6-2.3); Non-African American GFR(CKD) 65 (>60 ml/min/1.73 sqM); Potassium 4.8 mmol/L (3.5-5.1); Sodium 138 mmol/L (137-145); Total Bilirubin 1.4 mg/dL (0.2-1.3)
[2024-08-24 11:40] LABS: INR 1.2 (<1.2); Prothrombin Time 12.4 sec (10.0-12.5)
[2024-08-24 11:41] LABS: HGB 8.1 gm/dL (13.0-17.5)
[2024-08-24 11:43] LABS: NT-Pro-B-Type Natriuretic Pept 6810 pg/mL; WBC 135.7 k/uL (3.8-10.6)
[2024-08-24] MEDS: methylPREDNISolone SOD SUCCI 125 MG/2 ML VIAL IV STA (11:43)
[2024-08-24 11:51] LABS: Partial Thromboplastin Time 21.8 sec (22.0-30.0)
[2024-08-24 11:56] LABS: ALT 27 U/L (4-49); Carbon Dioxide 8 mmol/L (22-30)
[2024-08-24 12:04] LABS: Platelet Count 21 k/uL (150-450)
[2024-08-24 12:12] LABS: Band Neutrophils % 1 %; Metamyelocytes # (M) 1.36 k/uL (0); Metamyelocytes % 1 %; Monocytes # (M) 12.21 k/uL (0-1.0); Neutrophils % (M) 3 %
[2024-08-24 12:13] LABS: Blast Cells # (M) 100.42 k/uL (0); Nucleated Red Blood Cells 0 /100 WBC (0-0); Total Cells Counted 200
--- NOTE | 2024-08-24 12:14 | XR ---
EXAMINATION TYPE: XR chest 1V portable DATE OF EXAM: 08/24/2024 12:02 PM COMPARISON: None CLINICAL INDICATION: Male, 53 years old with history of chest pain, , FINDINGS: Heart normal size. Aorta and pulmonary vasculature within normal limits. Diffuse interstitial densiti es and patchy peripheral left midlung and right basilar opacity. Possible trace pleural effusions. IMPRESSION: Interstitial densities. Some patchy opacity at the right base and periphery of the left midlung. Poss ible trace effusions. Consider mild to moderate CHF with pulmonary vascular congestion. Pneumonia can be excluded on a clinical basis. [facility], , 08/24/2024 12:11 PM
[2024-08-24 13:01] LABS: Phosphorus 4.2 mg/dL (2.5-4.5); Uric Acid 9.1 mg/dL (3.5-8.5)
[2024-08-24] MEDS ORDERED: IPRATROPIUM-ALBUTEROL 3 ML NEB INHALATION PRN (13:08)
[2024-08-24] MEDS ORDERED: NALOXONE 0.4 MG/ML 1 ML VIAL IV PRN (13:08)
[2024-08-24 13:19] LABS: Allen Test Performed? Yes
[2024-08-24 13:20] LABS: ABG Base Excess -14.2 mmol/L; ABG HCO3 12 mmol/L (21-25); ABG PCO2 28 mmHg (35-45); ABG PH 7.24 (7.35-7.45); ABG PO2 63 mmHg (83-108); ABG TCO2 13 mmol/L (19-24)
[2024-08-24] MEDS: DEXTROSE 5%-0.45% NACL 1,000 ML IV ONE (13:57)
--- NOTE | 2024-08-24 14:01 | P.CRDCN ---
History of Present Illness History of present illness: HISTORY OF PRESENT ILLNESS: This is a 53-year-old male with a recent diagnosis of mantle cell lymphoma. Patient does not follow with a platform attendant. We have been asked to see the patient in consultation for elevated troponins. Patient examined at the bedside in the emergency room. Patient spouse is present. Patient presented to the hospital with a chief complaint of shortness of breath. He states he has been feeling short of breath for the past couple days but it has worsened. He also reports having chest pain with deep inspiration. Patient's spouse states that he was diagnosed with mantle cell lymphoma 2 weeks ago and is supposed to start chemo next week. She states that he initially started to feel unwell at the beginning of May and went to [facility] and was diagnosed with a pulled muscle. However his symptoms persisted so he followed up with his PCP and had blood work drawn which was abnormal which then led to him being evaluated by oncology. He reports a 15 pound weight loss recently. He is a current cigarette smoker. Bedside telemetry reveals sinus tachycardia with heart rate in 110. Blood pressure 83/56. DIAGNOSTICS: - EKG reveals sinus tachycardia with diffuse ST depression and ST elevation in aVR and V1 - Chest xray interstitial densities. Some patchy opacity at the right base and periphery of the left midlung. Possible trace effusions. Consider mild to moderate CHF with pulmonary vascular congestion. Pneumonia cannot be excluded on a clinical basis. - Laboratory data: WBC 135.7. Hemoglobin 8.1. Platelet count 21. Sodium 138. Potassium 4.8. CO2 8. BUN 40. Creatinine 1.27. Magnesium 2.6. Troponin 0.157. proBNP 6810. - Current home cardiac medications include none - No previous echocardiogram, stress test, or cardiac catheterization available in EMR for review REVIEW OF SYSTEMS: At the time of my exam: CONSTITUTIONAL: Denies fever or chills. Reports recent weight loss. HEENT: Denies blurred vision, vision changes, or eye pain. Denies hemoptysis CARDIOVASCULAR: Reports chest pain with inspiration. Denies orthopnea. Denies PND. Denies palpitations RESPIRATORY: Reports shortness of breath. GASTROINTESTINAL: Denies abdominal pain. Denies nausea or vomiting. HEMATOLOGIC: Denies bleeding disorders. GENITOURINARY: Denies any blood in urine. SKIN: Denies pruitis. Reports generalized petechial rash. PHYSICAL EXAM: VITAL SIGNS: Reviewed. GENERAL: Well-developed in no acute distress. Frail. Cachectic. HEENT: Head is normocephalic. Pupils are equal, round. Sclerae anicteric. Mucous membranes of the mouth are moist. Neck supple. No JVD or thyromegaly LUNGS: Respirations even and unlabored. Lungs essentially clear to auscultation bilaterally. HEART: Regular rate and rhythm. S1 and S2 heard. ABDOMEN: Soft. Nondistended. Nontender. SKIN: Patient with generalized petechial rash. Skin ashen in color. EXTREMITIES: Normal range of motion. No clubbing or cyanosis. Peripheral pulses intact. Trace right lower extremity edema NEUROLOGIC: Awake and alert. Oriented x 3. ASSESSMENT: Shortness of breath Elevated troponins, likely type II OR secondary to acute mantle cell lymphoma, cannot rule out underlying CAD Recent diagnosis of mantle cell lymphoma Significant leukocytosis, secondary to mantle cell lymphoma Anemia Thrombocytopenia, platelet count 21 Nicotine dependence Unintentional weight loss of 15 pounds Protein calorie malnutrition, BMI 18.8 PLAN: Obtain 2D echo to assess cardiac structure and function Patient is unfortunately not a candidate for any invasive testing or procedures secondary to his acute condition. Continue with medical management at this time No IV heparin secondary to significant thrombocytopenia Consult Dr. Kirkland for possible ICU admission Further recommendations pending patient course Nurse practitioner note has been reviewed by physician. Signing provider agrees with the documented findings, assessment, and plan of care documented by EXHIBIT DESIGNER as a scribe. Past Medical History Past Medical History: Cancer History of Any Multi-Drug Resistant Organisms: None Reported Past Surgical History: No Surgical Hx Reported Past Psychological History: No Psychological Hx Reported Smoking Status: Current every day smoker Past Alcohol Use History: None Reported Past Drug Use History: Marijuana Medications and Allergies Home Medications Medication Instructions Recorded Confirmed Type Hydroxyurea [Hydrea] 1,000 mg PO TID 08/09/24 08/24/24 History Omeprazole [PriLOSEC] 20 mg PO DAILY 08/09/24 08/24/24 History allopurinoL [Zyloprim] 300 mg PO HS 08/09/24 08/24/24 History HYDROcodone/APAP 10-325MG [[place] 1 - 2 tab PO Q6H PRN 08/24/24 08/24/24 History 10-325] Ondansetron [Zofran] 4 mg PO Q6H PRN 08/24/24 08/24/24 History Allergies Allergy/AdvReac Type Severity Reaction Status Date / Time No Known Allergies Allergy Verified 08/24/24 11:17 Physical Exam Vitals: Vital Signs Temp Pulse Resp BP Pulse Ox 08/24/24 11:29 114 H 20 104/69 97 08/24/24 11:20 115 H 18 104/70 96 08/24/24 11:19 118 H 18 109/72 98 08/24/24 10:54 97.9 F 125 H 22 103/69 99 Intake and Output 08/23/24 08/24/24 08/24/24 22:59 06:59 14:59 Other: Weight 61.235 kg Results 08/24/24 11:16 08/24/24 11:16 Cardiac Enzymes 08/24/24 08/24/24 Range/Units 11:16 11:16 AST 74 H (17-59) U/L Troponin I 0.157 H* (0.000-0.034) ng/mL Coagulation 08/24/24 Range/Units 11:16 PT 12.4 (10.0-12.5) sec APTT 21.8 L (22.0-30.0) sec CBC 08/24/24 Range/Units 11:16 WBC 135.7 H* (3.8-10.6) k/uL RBC 2.19 L (4.30-5.90) m/uL Hgb 8.1 L D (13.0-17.5) gm/dL Hct 21.8 L (39.0-53.0) % Plt Count 21 L D (150-450) k/uL Comprehensive Metabolic Panel 08/24/24 Range/Units 11:16 Sodium 138 (137-145) mmol/L Potassium 4.8 (3.5-5.1) mmol/L Chloride 106 (98-107) mmol/L Carbon Dioxide 8 L* (22-30) mmol/L BUN 40 H (9-20) mg/dL Creatinine 1.27 H (0.66-1.25) mg/dL Glucose 91 (74-99) mg/dL Calcium 9.3 (8.4-10.2) mg/dL AST 74 H (17-59) U/L ALT 27 (4-49) U/L Alkaline Phosphatase 261 H (38-126) U/L Total Protein 6.0 L (6.3-8.2) g/dL Albumin 3.6 (3.5-5.0) g/dL Current Medications Generic Name Dose Route Start Last Admin Trade Name Freq PRN Reason Stop Dose Admin Albuterol/Ipratropium 3 ml 08/24/24 13:08 Ipratropium-Albuterol 3 Ml Neb INHALATION RT-Q4H PRN Shortness Of Breath Or Wheezing Dextrose/Sodium Chloride 1,000 mls @ 75 mls/hr 08/24/24 11:58 Dextrose 5%-1/2ns Iv Soln IV 08/25/24 01:17 .[id number] ONE Cefepime HCl 2 gm/ Sodium 100 mls @ 25 mls/hr 08/24/24 21:00 Chloride IVPB Q12HR SOULEYMANE Protocol Sodium Bicarbonate 150 ml/ 1,150 mls @ 150 mls/hr 08/24/24 12:45 Dextrose/Water IV .[id number] SOULEYMANE Morphine Sulfate 4 mg 08/24/24 13:08 Morphine Sulfate 4 Mg/Ml Syringe IV Q3HR PRN Severe Pain (Scale 7 to 10) Naloxone HCl 0.2 mg 08/24/24 13:08 Naloxone 0.4 Mg/Ml 1 Ml Vial IV Q2M PRN Opioid Reversal Pantoprazole Sodium 40 mg 08/24/24 13:15 Pantoprazole 40 Mg/10 Ml Vial IV DAILY SOULEYMANE Intake and Output 08/23/24 08/24/24 08/24/24 22:59 06:59 14:59 Other: Weight 61.235 kg Patient Weight 08/25/24 06:59 Weight 61.235 kg 08/24/24 11:16 08/24/24 11:16
[2024-08-24] MEDS: PANTOPRAZOLE 40 MG/10 ML VIAL IV SCH (14:09)
[2024-08-24] MEDS: DEXTROSE 5% IN WATER 1,000 ML with SODIUM BICARB (1 MEQ/ML) 150 ML IV SCH (14:23)
[2024-08-24] MEDS: CEFEPIME 2 GM in SODIUM CHLORIDE 0.9% 100 ML IVPB STA (14:23)
[2024-08-24] MEDS ORDERED: DEXAMETHASONE SOD PHOSPHATE 10 MG/ML 1 ML VIAL IVP SCH (14:30)
[2024-08-24 14:42] LABS: Glucose,Whole Blood 105 mg/dL (70-110)
[2024-08-24] MEDS: RASBURICASE 6 MG in SODIUM CHLORIDE 0.9% 46 ML IV ONE (15:35)
[2024-08-24] MEDS: DEXAMETHASONE SOD PHOS (MDV) 40 MG in DEXTROSE 5% IN WATER 50 ML IVPB SCH (15:35)
[2024-08-24] MEDS: MORPHINE SULFATE 4 MG/ML SYRINGE IV PRN (15:41)
--- NOTE | 2024-08-24 16:50 | P.CNPUL ---
History of Present Illness Consult date: 08/24/24 Reason for consult: dyspnea History of present illness: This is a 53-year-old male patient with a recent diagnosis of mantle cell lymphoma was been feeling progressively weak and ill over the past 2 months. Based on the history, the patient had been feeling sick with diffuse body aches and fullness in his abdomen especially in the left upper quadrant and in addition to that the patient was having sweats and diminished appetite. The patient was in the hospital on 08/09/2024 he was seen by oncology and at that time, he had a white cell count of 179,000 with a platelet count of 88,000 and hemoglobin 11.2. His CRP was elevated at 22.9 and a sed rate of 39. Creatinine was at 1.2. He had an ultrasound of the abdomen that showed hepatosplenomegaly and the liver was around 80 cm in size and the spleen was 19 x 11 x 15 cm in size. The patient had a uric acid of 10.3. The patient was given a bone marrow biopsy to confirm the diagnosis of [place] cell lymphoma. He has also had a uric acid of 10.3. He was discharged home on Hydrea. On today's evaluation, the patient came into the hospital because of increased shortness of breath, lethargic, weak. In the emergency, the patient was found to have severe lactic acidosis with a lactic acid level was at 14.0. Uric acid level was at 9.1. His blood gas showed a pH of 7.24 with a pCO2 of 28 and pO2 of 63. The white cell count was 135 with a hemoglobin of 8.1 and a platelet count of 21. Based on that, and intensive care consultation was requested. He was afebrile. He was tachycardic. He was in sinus tachycardia. Blood pressure was stable at 98/63 and the patient was on 3 L of oxygen by nasal cannula with a pulse ox of 93%.. Chest x-ray was done in the emergency and it showed patchy infiltration of the right lung base along with peripheral left midlung infiltration and trace pleural effusion. Patient denies having any chest pain. No headaches. No focal neurological deficits. The patient's calcium level was at 9.3. Phosphorus at 4.2. Magnesium is 2.6. Bilirubin is at 1.4. proBNP level is 6810 and a troponin of 0.3. Review of Systems Constitutional: Reports fatigue, Reports lethargy, Reports night sweats, Reports sweats, Reports weakness, Reports weight loss Eyes: denies as per HPI, denies blurred vision, denies bulging eye, denies decreased vision, denies diplopia, denies discharge, denies dry eye, denies irritation, denies itching, denies pain, denies photophobia, denies loss of per ipheral vision, denies loss of vision, denies tunnel vision/blind spots Ears: deny: decreased hearing, ear discharge, earache, tinnitus Ears, nose, mouth and throat: Reports as per HPI Breasts: absent: as per HPI, gynecomastia Cardiovascular: Reports decreased exercise tolerance, Reports dyspnea on exertion Respiratory: Reports dyspnea Gastrointestinal: Reports as per HPI Genitourinary: Reports as per HPI Musculoskeletal: Reports as per HPI Musculoskeletal: absent: ankle pain, ankle stiffness, ankle swelling, as per HPI, elbow pain, elbow stiffness, elbow swelling, foot pain, foot stiffness, foot swelling, hand pain, hand stiffness, hand swelling, hip pain, hip stiff ness, hip swelling, knee pain, knee stiffness, knee swelling, shoulder pain, shoulder stiffness, shoulder swelling, wrist pain, wrist stiffness, wrist swelling Integumentary: Reports as per HPI Neurological: Reports as per HPI Psychiatric: Reports as per HPI Endocrine: Reports fatigue Hematologic/Lymphatic: Reports as per HPI Allergic/Immunologic: Reports as per HPI Past Medical History Past Medical History: Cancer Additional Past Medical History / Comment(s): Mantle cell lymphoma History of Any Multi-Drug Resistant Organisms: None Reported Past Surgical History: No Surgical Hx Reported Additional Past Anesthesia/Blood Transfusion Reaction / Comment(s): Patient has never recieved a blood transfusion or had anesthesia. Past Psychological History: No Psychological Hx Reported Smoking Status: Current every day smoker Past Alcohol Use History: None Reported Past Drug Use History: Marijuana - Past Family History Father History Unknown: Yes Mother Family Medical History: Cancer Additional Family Medical History / Comment(s): Breast CA, passed at age 53 Medications and Allergies Home Medications Medication Instructions Recorded Confirmed Type Hydroxyurea [Hydrea] 1,000 mg PO TID 08/09/24 08/24/24 History Omeprazole [PriLOSEC] 20 mg PO DAILY 08/09/24 08/24/24 History allopurinoL [Zyloprim] 300 mg PO HS 08/09/24 08/24/24 History HYDROcodone/APAP 10-325MG [[place] 1 - 2 tab PO Q6H PRN 08/24/24 08/24/24 History 10-325] Ondansetron [Zofran] 4 mg PO Q6H PRN 08/24/24 08/24/24 History Allergies Allergy/AdvReac Type Severity Reaction Status Date / Time No Known Allergies Allergy Verified 08/24/24 11:17 Physical Exam Vitals: Vital Signs Temp Pulse Pulse Resp BP Pulse Ox 08/24/24 16:00 97.6 F 118 H 22 98/63 96 08/24/24 15:30 117 H 20 98/63 96 08/24/24 15:00 114 H 16 91/57 96 08/24/24 14:40 97.5 F L 114 H 16 95/63 95 08/24/24 14:29 97.8 F 118 H 22 95/65 97 08/24/24 13:30 97.0 F L 62 20 100/52 97 08/24/24 12:30 113 H 118 H 20 98/62 97 08/24/24 11:29 114 H 20 104/69 97 08/24/24 11:20 115 H 18 104/70 96 08/24/24 11:19 118 H 18 109/72 98 08/24/24 10:54 97.9 F 125 H 22 103/69 99 Intake and Output 08/24/24 08/24/24 08/24/24 06:59 14:59 22:59 Intake Total 2195 420 Output Total 0 475 Balance 2195 -55 Intake: IV 2195 420 Cefepime 2 gm In Sodium 100 Chloride 0.9% 100 ml @ 200 mls/hr IVPB ONCE STA Rx#:[id number] Dexamethasone Sod Phos ( 50 Mdv) 40 mg In Dextrose 5% in Water 50 ml @ 100 mls /hr IVPB DAILY@1500 [place] Rx#:[id number] Dextrose 5% in Water 1, 75 300 000 ml @ 150 mls/hr IV . Q7H40M [place] with Sodium Bicarb (1 Meq/ml) 150 ml Rx#:[id number] Invasive Line 1 10 10 Invasive Line 2 10 10 Rasburicase 6 mg In 50 Sodium Chloride 0.9% 46 ml @ 100 mls/hr IV ONCE ONE Rx#:[id number] Sodium Chloride 0.9% 1, 1000 000 ml @ 999 mls/hr IV . Q1H1M STA Rx#:[id number] Sodium Chloride 0.9% 1, 1000 000 ml @ 999 mls/hr IV . Q1H1M STA Rx#:[id number] Output: Gastric Drainage 0 Urine 0 475 Stool 0 Emesis 0 Oral Regurgitation 0 Other 0 Other: # Voids 1 # Bowel Movements 0 Weight 61.235 kg 62.051 kg The patient appeared to be cachectic and emaciated. Body mass index is 19.1. Vital signs as documented. The patient is currently on 3 L O2 nasal cannula Head exam is unremarkable. No scleral icterus or corneal arcus noted. Neck is without jugular venous distension, thyromegaly, or carotid bruits. Carotid upstrokes are brisk bilaterally. There is conjunctival pallor. No icterus. Lungs patient is tachypneic. Mild dyspnea. Diminished breath sound lung base bilaterally along with some limited bibasilar crackles Cardiac exam reveals the PMI to be normally sized and situated. Rhythm is regular. First and second heart sounds normal. No murmurs, rubs or gallops. Abdominal exam reveals normal bowel sounds, no masses, there is hepatosplenomegaly. No direct tenderness. No rebound tenderness or guarding. Extremities are nonedematous and both femoral and pedal pulses are normal. Examination of the skin revealed no evidence of significant rashes, suspicious appearing nevi or other concerning lesions. Neurologically, the patient is awake and alert and the patient does not have any focal neurological deficit. Cranial nerves are essentially intact. Results - Laboratory Findings CBC and BMP: 08/24/24 11:16 08/24/24 11:16 ABG ABG pH 7.24 (7.35-7.45) L 08/24/24 12:20 ABG pCO2 28 mmHg (35-45) L 08/24/24 12:20 ABG pO2 63 mmHg (83-108) L 08/24/24 12:20 ABG O2 Saturation 89.0 % (94-97) L 08/24/24 12:20 PT/INR, D-dimer PT 12.4 sec (10.0-12.5) 08/24/24 11:16 INR 1.2 (<1.2) H 08/24/24 11:16 Abnormal lab findings: Abnormal Labs 08/24/24 08/24/24 08/24/24 11:16 11:16 11:16 WBC 135.7 H* RBC 2.19 L Hgb 8.1 L D Hct 21.8 L MCH 37.1 H MCHC 37.3 H RDW 17.1 H Plt Count 21 L D Blast Cells % 74 H* Lymphocytes # (Manual) 19.00 H Monocytes # (Manual) 12.21 H Metamyelocytes # (Man) 1.36 H Blast Cells # (Man) 100.42 H INR 1.2 H APTT 21.8 L ABG pH ABG pCO2 ABG pO2 ABG HCO3 ABG Total CO2 ABG O2 Saturation Carbon Dioxide 8 L* BUN 40 H Creatinine 1.27 H Plasma Lactic Acid Sudarshan Uric Acid Magnesium 2.6 H Total Bilirubin 1.4 H AST 74 H Alkaline Phosphatase 261 H Troponin I Total Protein 6.0 L 08/24/24 08/24/24 08/24/24 11:16 12:20 12:32 WBC RBC Hgb Hct MCH MCHC RDW Plt Count Blast Cells % Lymphocytes # (Manual) Monocytes # (Manual) Metamyelocytes # (Man) Blast Cells # (Man) INR APTT ABG pH 7.24 L ABG pCO2 28 L ABG pO2 63 L ABG HCO3 12 L ABG Total CO2 13 L ABG O2 Saturation 89.0 L Carbon Dioxide BUN Creatinine Plasma Lactic Acid Sudarshan Uric Acid 9.1 H Magnesium Total Bilirubin AST Alkaline Phosphatase Troponin I 0.157 H* Total Protein 08/24/24 08/24/24 13:16 13:26 WBC RBC Hgb Hct MCH MCHC RDW Plt Count Blast Cells % Lymphocytes # (Manual) Monocytes # (Manual) Metamyelocytes # (Man) Blast Cells # (Man) INR APTT ABG pH ABG pCO2 ABG pO2 ABG HCO3 ABG Total CO2 ABG O2 Saturation Carbon Dioxide BUN Creatinine Plasma Lactic Acid Sudarshan 14.0 H* Uric Acid Magnesium Total Bilirubin AST Alkaline Phosphatase Troponin I 0.302 H* Total Protein - Diagnostic Findings Chest x-ray: image reviewed Assessment and Plan Plan: Mantle cell lymphoma Severe lactic acidosis/metabolic acidosis with secondary respiratory compensation and tachypnea. Severe leukocytosis, rule out underlying leukostasis. Thrombocytopenia, secondary to above Anemia secondary to above Acute kidney injury Troponin leak with elevated proBNP levels, rule out underlying CHF Hyperuricemia, rule out a component of tumor lysis syndrome. Acute hypoxic respiratory failure, currently on 3 L O2 nasal cannula Bilateral pulmonary filtrates, could be related to leukostasis. Consider superinfection/pneumonia Constitutional symptoms, sweats, weight loss, and the patient carries a body mass index of 19.1 Plan Condition is critical. Case was discussed with hematology oncology. Will resuscitate the patient with IV fluids. The patient will be started on a bicarb infusion And this will be continued at the rate of 150 cc an hour. The patient was already given a total of 2 L of normal saline. Will continue monitoring the lactic acid level. Obtain blood cultures Check procalcitonin level Cover the patient empirically with IV cefepime Start the patient on Decadron 40 mg IV on a daily basis for the next 4 days Give the patient a dose of rasburicase 6 mg IV Monitor oxygenation Obtain echocardiogram Hematology consultation May need leukapheresis. May also need to be initiated on systemic chemotherapy. Will discuss this with hematology oncology. Condition is critical. Time with Patient: Greater than 30
[2024-08-24 16:58] LABS: Acetaminophen <10.0 ug/mL; Salicylate <1.0 mg/dL
[2024-08-24] MEDS: SODIUM CHLORIDE 0.9% 1,000 ML IV ONE (17:27)
[2024-08-24] MEDS: ONDANSETRON 4 MG/2 ML VIAL IVP PRN (18:13)
[2024-08-24] MEDS: SODIUM BICARB 8.4% 50 ML SYR (1 MEQ/ML) IV STA ×2 (18:30→19:33)
[2024-08-24 19:06] LABS: Glucose,Whole Blood 176 mg/dL (70-110)
[2024-08-24] MEDS: CISATRACURIUM 2 MG/ML 5 ML VIAL IV ONE (19:12)
[2024-08-24] MEDS ORDERED: NOREPINEPHRINE 4 MG in SODIUM CHLORIDE 0.9% 250 ML IV SCH (19:15)
[2024-08-24 19:31] LABS: ABG Oxygen Saturation 89.8 % (94-97); ABG PCO2 50 mmHg (35-45); ABG PO2 101 mmHg (83-108); Allen Test Performed? Yes
[2024-08-24 19:33] LABS: ABG PH <6.82 (7.35-7.45)
--- NOTE | 2024-08-24 19:41 | XR ---
EXAMINATION TYPE: XR chest 1V portable DATE OF EXAM: 08/24/2024 7:32 PM COMPARISON: Earlier today CLINICAL INDICATION: Male, 53 years old with history of intubation, , FINDINGS: ET tube tip at the level of the medial clavicular heads. NG tube courses below the diaphragm. Heart n ormal size. Worsening now patchy and confluent bilateral airspace opacity. Possible trace effusions. IMPRESSION: 1. Satisfactory ET and NG tubes. 2. Interval worsening now with patchy and confluent diffuse bilateral airspace disease. [facility], , 08/24/2024 7:38 PM
--- NOTE | 2024-08-24 19:42 | P.PN ---
Progress Note - Text Progress Note Date: 08/24/24 Immediately after arrival to the intensive care unit, the patient's condition decompensated. He had diminished level of consciousness, progressive hypotension and tachypneic. Lactic acid level was still elevated at 14. He was given 2 additional doses of sodium bicarb 50 m equivalents IV push. I attended this patient again and at the time of my evaluation, the patient was quite obtunded and as I was getting ready to intubate the patient, the patient became bradycardic and he briefly went into cardiopulmonary arrest. This is probably related to his severe acidosis. He was given epinephrine a total of 2 doses and he was given also atropine and CPR for approximately 1 minutes. I intubated the patient in the intensive care unit. Following that, there was buddhism of pulse and blood pressure. At this point in time, the patient intubated on the mechanical ventilator. Postintubation blood gases showed a pH of less than 6.8 with a pCO2 of 50 and pO2 of 118 this was done on a rate of 32, tidal volume of 400, FiO2 of 100% and a PEEP of 5. Postintubation chest x-ray showed development of diffuse bilateral pulmonary filtrates. ET tube is in good location. Findings are consistent with cardiogenic versus noncardiogenic pulmonary edema/ARDS. The patient was started on propofol. The patient was started on Nimbex for paralysis and synchrony with mechanical ventilator. Further adjustments on the mechanical ventilator was done and the patient was brought up to a rate of 78, tidal volume of 450 and the PEEP was brought up to 10 with an FiO2 of 80%. Additional dose of bicarb was given a total of 7 doses during this event. The patient is currently on a bicarb infusion which is running at the rate of 150 cc an hour. The patient is also on norepinephrine 0.6 at 0.6 mcg/kg/min. Despite his ongoing thrombocytopenia, I inserted a triple-lumen catheter and arterial line catheter knowing that the patient needed invasive hemodynamic support and monitoring. He does have underlying thrombocytopenia. He is having some minimal ooze of blood from the puncture site. This is being controlled locally by pressure dressing. Lines were inserted and there is right femoral artery and vein. Family informed of the condition. Contacted hematology oncology. Will continue resuscitation. Follow-up blood gases are to follow. Will repeat the labs. Will broaden the antibiotic coverage to include a combination of cefepime and vancomycin. Will obtain echocardiogram. Will check coagulation profile. Will check platelet count. Will transfuse this patient with platelets available. Continue Decadron. Loving catheter inserted. Condition is extremely critical. Carries a very high mortality. Discussed the possibility of leukapheresis/plasmapheresis with hematology oncology. Not stable for transfer at this point. Very high mortality risk.
--- NOTE | 2024-08-24 19:45 | P.PCN ---
Date of Procedure: 08/24/24 Operative Findings: Indication: Respiratory compromise. A time-out was completed verifying correct patient, procedure, site, positioning, and implant(s) or special equipment if applicable. The patient was positioned appropriately and a #8endotracheal tube was placed under direct laryngoscopy. The tube was anchored at 22 cm at the teeth. Correct placement was confirmed by presence of bilateral breath sounds without air sounds in the abdomen on auscultation. An end-tidal CO2 monitor was also used to confirm tracheal placement of the ET tube. A chest x-ray was ordered to assess for pneumothorax and verify endotracheal tube placement. The patient tolerated the procedure well and there were no complications. Central line insertion Indication: Hemodynamic monitoring/Intravenous access. A time-out was completed verifying correct patient, procedure, site, positioning, and implant(s) or special equipment if applicable. The patient was placed in a dependent position appropriate for triple lumen catheter placement based on the vein to be cannulated. The patient's right femoral area was prepped and draped in sterile fashion. 1% Lidocaine was used to anesthetize the surrounding skin area. A triple lumen 9F Cordis catheter was introduced into the femoral vein using Seldinger technique. The catheter was threaded smoothly over the guide wire and appropriate blood return was obtained. Each lumen of the catheter was evacuated of air and flushed with sterile saline. The catheter was then sutured in place to the skin and a sterile dressing applied. Perfusion to the extremity distal to the point of catheter insertion was checked and found to be adequate. Arterial line insertion Indication: Hemodynamic monitoring. A time-out was completed verifying correct patient, procedure, site, positioning, and implant(s) or special equipment if applicable. The patients right groin was prepped and draped in sterile fashion. 1% Lidocaine was used to anesthetize the area. An 18G Arrow arterial line was introduced into the [radial/femoral] artery. The catheter was threaded over the guide wire and the needle was removed with appropriate pulsatile blood return. Blood loss was minimal. The catheter was then sutured in place to the skin and a sterile dressing applied. Perfusion to the extremity distal to the point of catheter insertion was checked and found to be adequate. The patient tolerated the procedure well and there were no complications.
--- NOTE | 2024-08-24 19:50 | P.CONS ---
History of Present Illness - Reason for Consult Consult date: 08/24/24 Mantle cell lymphoma, Bicytopenia, weakness, NSTEMI - History of Present Illness the patient is a 53-year-old white male, with multiple medical issues. He was recently seen about 2 weeks ago, when he had presented to the emergency room, with multiple complaints, including fatigue, intermittent fevers and night sweats, as well as some decrease in appetite and about a 15 pound weight loss. Labs done by his PCP at shown a markedly elevated white blood cell count in the 150,000 range. Initial lab differential indicated that there was a predominance of blasts. The patient therefore had a bone marrow aspiration biopsy. He actually felt significantly better with general supportive care, specifically hydration. His other counts are well within a safe range, and he had no evidence of any end organ damage of tumor lysis. He was therefore discharged home, as requested by him, and seen in the office. The pathology on the bone marrow actually came back as mantle cell lymphoma in leukemic phase. The patient was to start treatment next week. The patient states that his symptoms have persisted, since his hospital discharge, and have progressively gotten worse, especially over the past week. While he does not recall fever or chills been prominent, he has had very poor appetite and oral intake, and has gotten progressively weaker. He has lost additional weight. Over the past few days, he has also been feeding short of breath, and has had some intermittent chest pain. He has developed a petechial rash His and therefore called the admitting service, and was advised to go to the ER. Labs in the ER showed WBC in the same range at 135,000. However there was significant drop in his hemoglobin and platelets, which are now 8.1 and 21 respectively. There was evidence of metabolic acidosis, and increase in his creatinine to 1.27, from less than 1 previously. labs also showed elevated troponins, and bilateral interstitial lung infiltrates. The patient was seen in the ER, and case discussed in detail with already critical care, and the ER physician. it was felt that his presentation pot entially represented progressive lymphoma causing SIRS, and/or sepsis due to intercurrent infection, with the cardiac ischemic findings felt to be more likely secondary to the same. he was therefore admitted for further management, with plans to transfer to the ICU. Review of Systems Constitutional: Reports anorexia, Reports fatigue, Reports poor appetite, R eports weakness, Reports weight loss Eyes: denies blurred vision, denies pain Ears: deny: decreased hearing, ear discharge, earache, tinnitus Ears, nose, mouth and throat: Denies headache, Denies sore throat Cardiovascular: Reports chest pain, Reports shortness of breath Respiratory: Reports dyspnea Gastrointestinal: Reports abdominal pain, Reports loss of appetite Genitourinary: Reports as per HPI Musculoskeletal: Reports muscle weakness Integumentary: Reports rash Neurological: Reports weakness Psychiatric: Reports as per HPI Endocrine: Reports fatigue, Reports weight change Hematologic/Lymphatic: Reports as per HPI Past Medical History Past Medical History: Cancer Additional Past Medical History / Comment(s): Mantle cell lymphoma History of Any Multi-Drug Resistant Organisms: None Reported Past Surgical History: No Surgical Hx Reported Additional Past Anesthesia/Blood Transfusion Reaction / Comm: Patient has never recieved a blood transfusion or had anesthesia. Past Psychological History: No Psychological Hx Reported Smoking Status: Current every day smoker Past Alcohol Use History: None Reported Past Drug Use History: Marijuana - Past Family History Father History Unknown: Yes Mother Family Medical History: Cancer Additional Family Medical History / Comment(s): Breast CA, passed at age 53 Medications and Allergies Home Medications Medication Instructions Recorded Confirmed Type Hydroxyurea [Hydrea] 1,000 mg PO TID 08/09/24 08/24/24 History Omeprazole [PriLOSEC] 20 mg PO DAILY 08/09/24 08/24/24 History allopurinoL [Zyloprim] 300 mg PO HS 08/09/24 08/24/24 History HYDROcodone/APAP 10-325MG [[place] 1 - 2 tab PO Q6H PRN 08/24/24 08/24/24 History 10-325] Ondansetron [Zofran] 4 mg PO Q6H PRN 08/24/24 08/24/24 History Allergies Allergy/AdvReac Type Severity Reaction Status Date / Time No Known Allergies Allergy Verified 08/24/24 11:17 Physical Exam Vitals: Vital Signs Temp Pulse Pulse Resp BP Pulse Ox FiO2 08/24/24 19:13 100 08/24/24 17:00 113 H 16 100/66 97 08/24/24 16:00 97.6 F 118 H 22 98/63 96 08/24/24 15:30 117 H 20 98/63 96 08/24/24 15:00 114 H 16 91/57 96 08/24/24 14:40 97.5 F L 114 H 16 95/63 95 08/24/24 14:29 97.8 F 118 H 22 95/65 97 08/24/24 13:30 97.0 F L 62 20 100/52 97 08/24/24 12:30 113 H 118 H 20 98/62 97 08/24/24 11:29 114 H 20 104/69 97 08/24/24 11:20 115 H 18 104/70 96 08/24/24 11:19 118 H 18 109/72 98 08/24/24 10:54 97.9 F 125 H 22 103/69 99 Intake and Output 08/24/24 08/24/24 08/24/24 06:59 14:59 22:59 Intake Total 2195 2110 Output Total 0 475 Balance 2195 1635 Intake: IV 2195 1570 Cefepime 2 gm In Sodium 100 Chloride 0.9% 100 ml @ 200 mls/hr IVPB ONCE STA Rx#:[id number] Dexamethasone Sod Phos ( 50 Mdv) 40 mg In Dextrose 5% in Water 50 ml @ 100 mls /hr IVPB DAILY@1500 [place] Rx#:[id number] Dextrose 5% in Water 1, 75 450 000 ml @ 150 mls/hr IV . Q7H40M [place] with Sodium Bicarb (1 Meq/ml) 150 ml Rx#:[id number] Invasive Line 1 10 10 Invasive Line 2 10 10 Rasburicase 6 mg In 50 Sodium Chloride 0.9% 46 ml @ 100 mls/hr IV ONCE ONE Rx#:[id number] Sodium Chloride 0.9% 1, 1000 000 ml @ 999 mls/hr IV . Q1H1M ONE Rx#:[id number] Sodium Chloride 0.9% 1, 1000 000 ml @ 999 mls/hr IV . Q1H1M STA Rx#:[id number] Sodium Chloride 0.9% 1, 1000 000 ml @ 999 mls/hr IV . Q1H1M STA Rx#:[id number] Oral 540 Output: Gastric Drainage 0 Urine 0 475 Stool 0 Emesis 0 Oral Regurgitation 0 Other 0 Other: # Voids 1 # Bowel Movements 0 Weight 61.235 kg 62.051 kg - Constitutional General appearance: mild distress - EENT Eyes: EOMI, PERRLA ENT: hearing grossly normal, normal oropharynx - Neck bilateral shoddy adenopathy palpable in the necks, left greater than right, largest lymph node 8-10 mm. Possible shotty adenopathy in the left axilla, lymphadenopathy in the same range Thyroid: bilateral: normal size - Respiratory Respiratory: bilateral: CTA - Cardiovascular Rhythm: regular Heart sounds: normal: S1, S2 - Gastrointestinal mild patchy nonspecific tenderness. No rebound or rigidity General gastrointestinal: normal bowel sounds, soft - Integumentary multiple areas of discrete reddish rash, appears petechial - Neurologic Neurologic: CNII-XII intact - Musculoskeletal Musculoskeletal: generalized weakness, strength equal bilaterally - Psychiatric Psychiatric: A&O x's 3, appropriate affect Results CBC & Chem 7: 08/24/24 11:16 08/24/24 11:16 Labs: Abnormal Lab Results - Last 24 Hours (Table) 08/24/24 08/24/24 08/24/24 Range/Units 11:16 11:16 11:16 WBC 135.7 H* (3.8-10.6) k/uL RBC 2.19 L (4.30-5.90) m/uL Hgb 8.1 L D (13.0-17.5) gm/dL Hct 21.8 L (39.0-53.0) % MCH 37.1 H (25.0-35.0) pg MCHC 37.3 H (31.0-37.0) g/dL RDW 17.1 H (11.5-15.5) % Plt Count 21 L D (150-450) k/uL Blast Cells % 74 H* % Lymphocytes # (Manual) 19.00 H (1.0-4.8) k/uL Monocytes # (Manual) 12.21 H (0-1.0) k/uL Metamyelocytes # (Man) 1.36 H (0) k/uL Blast Cells # (Man) 100.42 H (0) k/uL INR 1.2 H (<1.2) APTT 21.8 L (22.0-30.0) sec ABG pH (7.35-7.45) ABG pCO2 (35-45) mmHg ABG pO2 (83-108) mmHg ABG HCO3 (21-25) mmol/L ABG Total CO2 (19-24) mmol/L ABG O2 Saturation (94-97) % Carbon Dioxide 8 L* (22-30) mmol/L BUN 40 H (9-20) mg/dL Creatinine 1.27 H (0.66-1.25) mg/dL POC Glucose (mg/dL) (70-110) mg/dL Plasma Lactic Acid Sudarshan (0.7-2.0) mmol/L Uric Acid (3.5-8.5) mg/dL Magnesium 2.6 H (1.6-2.3) mg/dL Total Bilirubin 1.4 H (0.2-1.3) mg/dL AST 74 H (17-59) U/L Alkaline Phosphatase 261 H (38-126) U/L Troponin I (0.000-0.034) ng/mL Total Protein 6.0 L (6.3-8.2) g/dL 08/24/24 08/24/24 08/24/24 Range/Units 11:16 12:20 12:32 WBC (3.8-10.6) k/uL RBC (4.30-5.90) m/uL Hgb (13.0-17.5) gm/dL Hct (39.0-53.0) % MCH (25.0-35.0) pg MCHC (31.0-37.0) g/dL RDW (11.5-15.5) % Plt Count (150-450) k/uL Blast Cells % % Lymphocytes # (Manual) (1.0-4.8) k/uL Monocytes # (Manual) (0-1.0) k/uL Metamyelocytes # (Man) (0) k/uL Blast Cells # (Man) (0) k/uL INR (<1.2) APTT (22.0-30.0) sec ABG pH 7.24 L (7.35-7.45) ABG pCO2 28 L (35-45) mmHg ABG pO2 63 L (83-108) mmHg ABG HCO3 12 L (21-25) mmol/L ABG Total CO2 13 L (19-24) mmol/L ABG O2 Saturation 89.0 L (94-97) % Carbon Dioxide (22-30) mmol/L BUN (9-20) mg/dL Creatinine (0.66-1.25) mg/dL POC Glucose (mg/dL) (70-110) mg/dL Plasma Lactic Acid Sudarshan (0.7-2.0) mmol/L Uric Acid 9.1 H (3.5-8.5) mg/dL Magnesium (1.6-2.3) mg/dL Total Bilirubin (0.2-1.3) mg/dL AST (17-59) U/L Alkaline Phosphatase (38-126) U/L Troponin I 0.157 H* (0.000-0.034) ng/mL Total Protein (6.3-8.2) g/dL 08/24/24 08/24/24 08/24/24 Range/Units 13:16 13:26 16:10 WBC (3.8-10.6) k/uL RBC (4.30-5.90) m/uL Hgb (13.0-17.5) gm/dL Hct (39.0-53.0) % MCH (25.0-35.0) pg MCHC (31.0-37.0) g/dL RDW (11.5-15.5) % Plt Count (150-450) k/uL Blast Cells % % Lymphocytes # (Manual) (1.0-4.8) k/uL Monocytes # (Manual) (0-1.0) k/uL Metamyelocytes # (Man) (0) k/uL Blast Cells # (Man) (0) k/uL INR (<1.2) APTT (22.0-30.0) sec ABG pH (7.35-7.45) ABG pCO2 (35-45) mmHg ABG pO2 (83-108) mmHg ABG HCO3 (21-25) mmol/L ABG Total CO2 (19-24) mmol/L ABG O2 Saturation (94-97) % Carbon Dioxide (22-30) mmol/L BUN (9-20) mg/dL Creatinine (0.66-1.25) mg/dL POC Glucose (mg/dL) (70-110) mg/dL Plasma Lactic Acid Sudarshan 14.0 H* (0.7-2.0) mmol/L Uric Acid (3.5-8.5) mg/dL Magnesium (1.6-2.3) mg/dL Total Bilirubin (0.2-1.3) mg/dL AST (17-59) U/L Alkaline Phosphatase (38-126) U/L Troponin I 0.302 H* 0.831 H* (0.000-0.034) ng/mL Total Protein (6.3-8.2) g/dL 08/24/24 08/24/24 Range/Units 16:17 19:04 WBC (3.8-10.6) k/uL RBC (4.30-5.90) m/uL Hgb (13.0-17.5) gm/dL Hct (39.0-53.0) % MCH (25.0-35.0) pg MCHC (31.0-37.0) g/dL RDW (11.5-15.5) % Plt Count (150-450) k/uL Blast Cells % % Lymphocytes # (Manual) (1.0-4.8) k/uL Monocytes # (Manual) (0-1.0) k/uL Metamyelocytes # (Man) (0) k/uL Blast Cells # (Man) (0) k/uL INR (<1.2) APTT (22.0-30.0) sec ABG pH (7.35-7.45) ABG pCO2 (35-45) mmHg ABG pO2 (83-108) mmHg ABG HCO3 (21-25) mmol/L ABG Total CO2 (19-24) mmol/L ABG O2 Saturation (94-97) % Carbon Dioxide (22-30) mmol/L BUN (9-20) mg/dL Creatinine (0.66-1.25) mg/dL POC Glucose (mg/dL) 176 H (70-110) mg/dL Plasma Lactic Acid Sudarshan 14.6 H* (0.7-2.0) mmol/L Uric Acid (3.5-8.5) mg/dL Magnesium (1.6-2.3) mg/dL Total Bilirubin (0.2-1.3) mg/dL AST (17-59) U/L Alkaline Phosphatase (38-126) U/L Troponin I (0.000-0.034) ng/mL Total Protein (6.3-8.2) g/dL Comments: EKG report/image reviewed Chest x-ray: report reviewed Assessment and Plan (1) SIRS (systemic inflammatory response syndrome) Narrative/Plan: the patient has had significant symptomatic deterioration, especially over the past few days. He also developed some shortness of breath, and chest pain. His presentation is quite comfortable with SIRS. The case was discussed in detail with the ED physician, as well as pulmonary and critical care. At this time the main differentials include lymphoma effect, and/or intercurrent sepsis. - The patient is being admitted to the ICU with aggressive supportive measures, including broad-spectrum antibiotics, cultures, IV hydration with bicarbonate, and oxygen support as needed. Deferred to [facility] for ongoing management in this r egard - Order labs for tumor lysis. If there is evidence of elevated uric acid, the patient will be given rasburicase - I discussed the possibility of leukostasis with CCM. Clinically this is less likely to occur with mantle cell lymphoma. In addition the patient had no evidence of leukostasis symptoms, when he had presented initially, when his WBC was actually higher than the current regimen. I will start him on pulse dose decadron, as this would be effective in treating SIRS from progressive lymphoma, as well as cause cytostasis and cytoreduction acutely, therefore treating leukostasis, if present Current Visit: Yes Status: Acute Code(s): R65.10 - SIRS OF NON-INFECTIOUS ORIGIN W/O ACUTE ORGAN DYSFUNCTION SNOMED Code(s): 022290998 (2) Mantle cell lymphoma Narrative/Plan: the patient was initially thought to have acute leukemia, when he had presented 2 weeks ago, as the lab differential on the peripheral blood had noted blasts. however subsequent bone marrow aspiration biopsy confirmed mantle cell, with possibly some underlying MDS. The patient was supposed to start treatment for his diagnosis next week. He will be started on pulse dose steroids to try to acutely cyto-reduce, and treat lymphoma related SIRS. Current Visit: Yes Status: Acute Code(s): C83.10 - MANTLE CELL LYMPHOMA, UNSPECIFIED SITE SNOMED Code(s): 109778770 (3) Bicytopenia Narrative/Plan: there has been a significant drop in his hemoglobin and platelets, compared to 2 weeks ago. Continue to monitor closely, and transfuse to keep hemoglobin greater than 7, and platelets greater than 10. Baseline coags were normal Current Visit: Yes Status: Acute Code(s): D75.89 - OTHER SPECIFIED DISEASES OF BLOOD AND BLOOD-FORMING ORGANS SNOMED Code(s): 24367737
[2024-08-24 19:52] LABS: ABG Base Excess -20.5 mmol/L; ABG Oxygen Saturation 97.7 % (94-97); ABG PCO2 44 mmHg (35-45); ABG PO2 139 mmHg (83-108); ABG TCO2 11 mmol/L (19-24); Allen Test Performed? Yes
[2024-08-24 19:53] LABS: Anisocytosis Slight; Hypochromasia Marked; MCH 34.1 pg (25.0-35.0); MCHC 33.8 g/dL (31.0-37.0); MCV 100.8 fL (80.0-100.0); Macrocytosis Slight; Mean Platelet Volume 11.8; Poikilocytosis Slight; RBC 1.68 m/uL (4.30-5.90); RDW 17.5 % (11.5-15.5)
[2024-08-24 19:54] LABS: ABG PH 6.94 (7.35-7.45)
[2024-08-24 19:55] LABS: ABG HCO3 10 mmol/L (21-25)
[2024-08-24 20:24] LABS: African American GFR (CKD) 57 (>60 ml/min/1.73 sqM); Anion Gap 35 mmol/L; Blood Urea Nitrogen 37 mg/dL (9-20); Calcium 7.8 mg/dL (8.4-10.2); Chloride 106 mmol/L (98-107); Glucose 139 mg/dL (74-99); Magnesium 3.2 mg/dL (1.6-2.3); Non-African American GFR(CKD) 49 (>60 ml/min/1.73 sqM); Potassium 4.1 mmol/L (3.5-5.1); Sodium 147 mmol/L (137-145)
[2024-08-24] MEDS: ARTIFICIAL TEARS-HYPROMELLOSE DROPS 15 ML BTL BOTH EYES SCH (20:25)
[2024-08-24 20:26] LABS: Carbon Dioxide 6 mmol/L (22-30)
[2024-08-24 20:29] LABS: WBC 100.9 k/uL (3.8-10.6)
[2024-08-24 20:31] LABS: HCT 16.9 % (39.0-53.0); HGB 5.7 gm/dL (13.0-17.5)
[2024-08-24 20:32] LABS: Platelet Count 8 k/uL (150-450)
[2024-08-24] MEDS: CISATRACURIUM 200 MG in SODIUM CHLORIDE 0.9% 180 ML IV SCH (20:39)
[2024-08-24] MEDS: VASOPRESSIN 60 UNIT in SODIUM CHLORIDE 0.9% 150 ML IV SCH (20:40)
[2024-08-24] MEDS: NOREPINEPHRINE 32 MG in SODIUM CHLORIDE 0.9% 218 ML IV SCH (20:40)
[2024-08-24 21:13] LABS: ABG Base Excess -19.3 mmol/L; ABG Oxygen Saturation 98.5 % (94-97); ABG PCO2 33 mmHg (35-45); ABG PO2 143 mmHg (83-108); ABG TCO2 10 mmol/L (19-24); Allen Test Performed? Yes
[2024-08-24 21:15] LABS: ABG HCO3 9 mmol/L (21-25); ABG PH 7.06 (7.35-7.45)
[2024-08-24 22:27] VITALS: TEMP 98.9
[2024-08-24 22:32] VITALS: BP 54/31; PULSE 98; RESP 33
[2024-08-25] MEDS: CEFEPIME 2 GM in SODIUM CHLORIDE 0.9% 100 ML IVPB SCH (00:24)
[2024-08-25 01:42] LABS: Blast Cells # (M) 87.78 k/uL (0); Lymphocytes # (M) 8.07 k/uL (1.0-4.8); Monocytes # (M) 1.01 k/uL (0-1.0); Neutrophils # (M) 4.04 k/uL (1.3-7.7); Neutrophils % (M) 4 %; Nucleated Red Blood Cells 0 /100 WBC (0-0); Total Cells Counted 200
--- NOTE | 2024-08-25 08:09 | CA ---
Transthoracic Echo Report Name: Jean-Claude Lovelace Age: 53 Gender: M : 1970 Exam Date: 08/24/2024 14:21 Exam Location: [facility] Ht (in): 71 Wt (lb): 135 Ordering Physician: Catherine Gonzalez Attending/Referring Phys: [id number], Lisa Support Director Ashley Fleming RDCS Procedure CPT: Indications: elevated trops, lv function Cardiac Hx: Technical Quality: Fair Contrast 1: Total Dose (mL): Contrast 2: Total Dose (mL): MEASUREMENTS (Male / Female) Normal Values 2D ECHO LV Diastolic Diameter PLAX 4.7 cm 4.2 - 5.9 / 3.9 - 5.3 cm LV Systolic Diameter PLAX 3.3 cm IVS Diastolic Thickness 1.0 cm 0.6 - 1.0 / 0.6 - 0.9 cm LVPW Diastolic Thickness 0.8 cm 0.6 - 1.0 / 0.6 - 0.9 cm LV Relative Wall Thickness 0.4 RV Internal Dim ED PLAX 2.7 cm LV Diastolic Volume MOD 4C 101.8 cm??? LV Systolic Volume MOD 4C 55.6 cm??? LV Ejection Fraction MOD 4C 45.4 % LV Cardiac Index MOD 4C 3132.2 cm???/min???m??? LV Diastolic Length 4C 8.9 cm LV Systolic Length 4C 8.0 cm LV Diastolic Volume MOD 2C 137.5 cm??? LV Systolic Volume MOD 2C 66.4 cm??? LV Ejection Fraction MOD 2C 51.7 % LV Cardiac Index MOD 2C 4826.6 cm???/min???m??? LV Diastolic Length 2C 9.1 cm LV Systolic Length 2C 7.8 cm LA Volume 58.8 cm??? 18 - 58 / 22 - 52 cm??? LA Volume Index 33.8 cm???/m??? 16 - 28 cm???/m??? M-MODE Aortic Root Diameter MM 3.3 cm AV Cusp Separation MM 2.3 cm DOPPLER MV Area PHT 5.0 cm??? Mitral E Point Velocity 153.2 cm/s Mitral A Point Velocity 78.8 cm/s Mitral E to A Ratio 1.9 MV Deceleration Time 151.8 ms TR Peak Velocity 289.1 cm/s TR Peak Gradient 33.4 mmHg Right Ventricular Systolic Press 38.4 mmHg FINDINGS Left Ventricle Left ventricular ejection fraction is estimated at 50-55 %. Left ventricular cavity size normal. Left ventricular wall thickness normal. No obvious regional wall motion abnormalities. Right Ventricle Normal right ventricular size and function. Mild pulmonary hypertension. Right Atrium Normal right atrial size. No right atrial thrombus or mass seen. Left Atrium Mildly increased left atrial volume. Mildly increased left atrial area. No left atrial thrombus or mass present. Mitral Valve Structurally normal mitral valve. Mild to moderate mitral regurgitation. Aortic Valve Trileaflet aortic valve. No aortic valve stenosis or regurgitation. Tricuspid Valve Structurally normal tricuspid valve. Mild tricuspid regurgitation. Pulmonic Valve Structurally normal pulmonic valve. No pulmonic regurgitation. Pericardium No pericardial or pleural effusion. Aorta Normal size aortic root and proximal ascending aorta. CONCLUSIONS 1. Left ventricular systolic function borderline normal 2. [id number] mitral with mild tricuspid regurgitation and mild pulmonary hypertension Previewed by: Dr. Aranza Lloyd MD (Electronically Signed) Final Date: 25 August 2024 08:08
--- NOTE | 2024-08-27 12:27 | CDI ---
Documentation Clarification Form Date: 08/27/2024 11:43:17 AM From: Niya Nixon RN, CCDS Email: [email or web address] Admit Date: 08/24/2024 01:08:00 PM Patient Name: Jean-Claude Lovelace Visit Number: [id number] Discharge Date: 08/24/2024 10:42:00 PM ATTENTION: The Clinical Documentation Specialists (CDI) and [facility] Coding Staff appreciate your assistance in clarifying documentation. Please respond to the clarification below the line at the bottom and electronically sign. The CDI & [facility] Coding staff will review the response and follow-up if needed. Please note: Queries are made part of the Legal Health Record. If you have any questions, please contact the author of this message via ITS. Doctor Ana Laura Kirkland The patient received IV Norepinephrine. Please clarify what condition/diagnosis was being treated. History/Risk Factors: New diagnosis of Mantle cell lymphoma, not started on treatment yet. Presented with symptomatic deterioration. Found to be in SIRS with severe acidosis and leukocytosis, went into cardiac arrest, intubated and mechanically ventilated. Clinical indicators: 08/24 Pulmonary note: "the patient was quite obtunded and as I was getting ready to intubate the patient, the patient became bradycardic and he briefly went into cardiopulmonary arrest with mu-ism of pulse and blood pressure. The patient was intubated on the mechanical ventilator. Postintubation chest x-ray showed development of diffuse bilateral pulmonary filtrates. ET tube is in good location. Findings are consistent with cardiogenic versus noncardiogenic pulmonary edema/ARDS. The patient is also on Norepinephrine 0.6 at 0.6 mcg/kg/min." 08/24 Arterial BP: 134/70-96/44-75/34-55/28 Treatment: IV Norepinephrine titrated 08/24; intubation and mechanical ventilation; 3L 0.9 NS IV bolus on 08/24 What diagnosis were you treating with IV Norepinephrine? [ x] Cardiogenic shock [ ] Hypovolemic shock [ ] Other shock, please specify [ ] No additional diagnosis [ ] Other, please specify [ ] Unable to determine MTDD
== END 2024-08-24 22:42 | disposition expired | DRG 840 ==
LOC: EC 10:49 → 2SICU 13:08
PROVIDERS: ADMIT Family Medicine; ATTEND Family Medicine
PROC: 30233R1 Transfusion of Nonautologous Platelets into Peripheral Vein, Percutaneous Approach (ICD-10-PCS; principal; 2024-08-24)
PROC: 03HY32Z Insertion of Monitoring Device into Upper Artery, Percutaneous Approach (ICD-10-PCS; principal; 2024-08-24)
PROC: 5A12012 Performance of Cardiac Output, Single, Manual (ICD-10-PCS; principal; 2024-08-24)
PROC: 4A133B1 Monitoring of Arterial Pressure, Peripheral, Percutaneous Approach (ICD-10-PCS; principal; 2024-08-24)
PROC: 5A1935Z Respiratory Ventilation, Less than 24 Consecutive Hours (ICD-10-PCS; principal; 2024-08-24)
PROC: 0D9670Z Drainage of Stomach with Drainage Device, Via Natural or Artificial Opening (ICD-10-PCS; principal; 2024-08-24)
PROC: 3E043XZ Introduction of Vasopressor into Central Vein, Percutaneous Approach (ICD-10-PCS; principal; 2024-08-24)
PROC: 30233N1 Transfusion of Nonautologous Red Blood Cells into Peripheral Vein, Percutaneous Approach (ICD-10-PCS; principal; 2024-08-24)
PROC: 0BH17EZ Insertion of Endotracheal Airway into Trachea, Via Natural or Artificial Opening (ICD-10-PCS; principal; 2024-08-24)
PROC: 06HY33Z Insertion of Infusion Device into Lower Vein, Percutaneous Approach (ICD-10-PCS; principal; 2024-08-24)
PROC: 4A133J1 Monitoring of Arterial Pulse, Peripheral, Percutaneous Approach (ICD-10-PCS; principal; 2024-08-24)
DX: C83.11 Mantle cell lymphoma, lymph nodes of head, face, and neck (principal); I21.A1 Myocardial infarction type 2; J18.9 Pneumonia, unspecified organism; C83.14 Mantle cell lymphoma, lymph nodes of axilla and upper limb; E46 Unspecified protein-calorie malnutrition; Z68.1 Body mass index [BMI] 19.9 or less, adult; E87.20 Acidosis, unspecified; R65.10 Systemic inflammatory response syndrome (SIRS) of non-infectious origin without acute organ dysfunction; R00.0 Tachycardia, unspecified; R00.1 Bradycardia, unspecified; I46.9 Cardiac arrest, cause unspecified; R16.2 Hepatomegaly with splenomegaly, not elsewhere classified; D46.9 Myelodysplastic syndrome, unspecified; D63.0 Anemia in neoplastic disease; D69.59 Other secondary thrombocytopenia; F17.210 Nicotine dependence, cigarettes, uncomplicated; Z66 Do not resuscitate; I95.89 Other hypotension; R57.0 Cardiogenic shock; Z28.310 Unvaccinated for COVID-19; Z28.21 Immunization not carried out because of patient refusal; Z79.899 Other long term (current) drug therapy; Z71.3 Dietary counseling and surveillance
CPT/HCPCS: 36415; 36600; 71045; 80048; 80053; 80143; 80179; 82805; 83605; 83735; 83880; 84100; 84145; 84484; 84550; 85025; 85610; 85730; 86850; 86900; 86901; 86920; 87040; 92950; 93005; 93306; 94002; 96361; 96365; 96368; 96375; 99291